=== PATIENT | male | born 1955 | race Caucasian/White ===

== ENCOUNTER 2016-12-25 23:20 | Emergency (ER) | payer MEDICAID ==
[2016-12-26 00:12] LABS: BASOPHILS 0.3 % (0-2); HEMATOCRIT 49.7 % (42.0-54.0); HEMOGLOBIN 17.2 g/dL (13.5-17.5); IMMATURE GRANULOCYTES 0.6 % (0-5); LYMPHOCYTES 21.4 % (15-50); MCHC 34.6 g/dL (31.0-37.0); MCV 92.4 fL (80.0-100.0); MEAN PLATELET VOLUME 10.3 fL (7.4-10.4); MONOCYTES 8.7 % (2-11); PLATELET COUNT 188 10x3/uL (130-400); RBC 5.38 10x6/uL (4.20-6.10); RDW 13.2 % (11.5-14.5); WBC 8.9 10x3/uL (4.8-10.8)
[2016-12-26 00:27] LABS: ALBUMIN 3.6 g/dL (3.4-5.0); ALKALINE PHOSPHATASE 96 U/L (46-116); ALT (SGPT) 57 U/L (10-68); BILIRUBIN - TOTAL 0.24 mg/dL (0.2-1.3); CALC OSMOLALITY 281 mosm/kg (275-300); CALCIUM 9.6 mg/dL (8.5-10.1); CARBON DIOXIDE 29.8 mmol/L (21.0-32.0); CHLORIDE - SERUM 103 mmol/L (98-107); CREATININE - SERUM 1.2 mg/dL (0.6-1.3); GLUCOSE 115 mg/dL (74-106); POTASSIUM - SERUM 3.7 mmol/L (3.5-5.1); PROTEIN - SERUM 7.4 g/dL (6.4-8.2); SODIUM 140 mmol/L (136-145); UREA NITROGEN 17 mg/dL (7-18); eGFR NON AFRICAN AMERICAN 66 mL/min (90-120)
[2016-12-26 00:36] LABS: CKMB 2.3 U/L (0.0-3.6); CREATINE KINASE 204 UL (21-232); TROPONIN-I 0.059 ng/mL (0.000-0.060)
== END 2016-12-26 01:06 | disposition home or self-care (01) ==
LOC: D.ER 23:20
PROVIDERS: Family Medicine
DX: J20.9 Acute bronchitis, unspecified (principal); I10 Essential (primary) hypertension; I44.60 Unspecified fascicular block

== ENCOUNTER 2017-04-14 18:43 | Emergency (ER) | payer MEDICAID ==
[2017-04-14 19:32] LABS: BASOPHILS 0.2 % (0-2); HEMATOCRIT 49.8 % (42.0-54.0); HEMOGLOBIN 17.6 g/dL (13.5-17.5); IMMATURE GRANULOCYTES 0.4 % (0-5); LYMPHOCYTES 23.5 % (15-50); MCH 32.1 pg (26.0-34.0); MCHC 35.3 g/dL (31.0-37.0); MCV 90.7 fL (80.0-100.0); MEAN PLATELET VOLUME 10.4 fL (7.4-10.4); NEUTROPHILS 65.9 % (40-80); PLATELET COUNT 191 10x3/uL (130-400); RBC 5.49 10x6/uL (4.20-6.10); RDW 13.1 % (11.5-14.5)
[2017-04-14 19:50] LABS: ANION GAP 9.5 mmol/L (8-16); BILIRUBIN - TOTAL 0.31 mg/dL (0.2-1.3); CALCIUM 9.7 mg/dL (8.5-10.1); CARBON DIOXIDE 31.2 mmol/L (21.0-32.0); CREATININE - SERUM 1.1 mg/dL (0.6-1.3); POTASSIUM - SERUM 3.7 mmol/L (3.5-5.1)
[2017-04-14 21:32] LABS: APPEARANCE CLEAR (CLEAR); BILIRUBIN NEGATIVE (NEGATIVE); COLOR YELLOW (YELLOW); GLUCOSE NEGATIVE (NEGATIVE); KETONE NEGATIVE (NEGATIVE); LEUKOCYTE ESTERASE NEGATIVE (NEGATIVE); NITRITE NEGATIVE (NEGATIVE); PROTEIN TRACE mg/dL (NEGATIVE); UROBILINOGEN NORMAL (NORMAL)
[2017-04-14 21:33] LABS: BACTERIA FEW /hpf (NONE SEEN); RED CELLS - URINE 0-5 /hpf (0-5); WHITE CELLS - URINE OCC /hpf (0-5)
== END 2017-04-14 22:01 | disposition home or self-care (01) ==
LOC: D.ER 18:43
PROVIDERS: Emergency Medicine
DX: R10.9 Unspecified abdominal pain (principal); I10 Essential (primary) hypertension; F17.200 Nicotine dependence, unspecified, uncomplicated

== ENCOUNTER → 2017-04-15 | Emergency (ER) | payer MEDICAID ==
[2017-04-15 10:57] LABS: BASOPHILS 0.1 % (0-2); EOSINOPHILS 1.3 % (0-7); HEMATOCRIT 48.7 % (42.0-54.0); IMMATURE GRANULOCYTES 0.5 % (0-5); LYMPHOCYTES 17.4 % (15-50); MCH 31.8 pg (26.0-34.0); MCHC 34.9 g/dL (31.0-37.0); MCV 91.2 fL (80.0-100.0); MEAN PLATELET VOLUME 10.2 fL (7.4-10.4); MONOCYTES 11.7 % (2-11); PLATELET COUNT 190 10x3/uL (130-400); RBC 5.34 10x6/uL (4.20-6.10); RDW 13.2 % (11.5-14.5); WBC 8.7 10x3/uL (4.8-10.8)
[2017-04-15 11:06] LABS: APTT 41.7 SECONDS (22.8-39.4); INR 0.94 (0.85-1.17); PROTIME 12.4 SECONDS (11.6-15.0)
[2017-04-15 11:09] LABS: ALBUMIN 3.6 g/dL (3.4-5.0); ALKALINE PHOSPHATASE 95 U/L (46-116); ALT (SGPT) 29 U/L (10-68); BILIRUBIN - TOTAL 0.33 mg/dL (0.2-1.3); CALC OSMOLALITY 274 mosm/kg (275-300); CALCIUM 9.4 mg/dL (8.5-10.1); CHLORIDE - SERUM 102 mmol/L (98-107); GLUCOSE 86 mg/dL (74-106); PROTEIN - SERUM 7.3 g/dL (6.4-8.2); SODIUM 136 mmol/L (136-145); eGFR NON AFRICAN AMERICAN 81 mL/min (90-120)
[2017-04-15 11:10] LABS: UREA NITROGEN 24 mg/dL (7-18)
== END | disposition home or self-care (01) ==
LOC: D.ER 10:29
PROVIDERS: Emergency Medicine
DX: K92.2 Gastrointestinal hemorrhage, unspecified (principal); K57.92 Diverticulitis of intestine, part unspecified, without perforation or abscess without bleeding; I10 Essential (primary) hypertension

== ENCOUNTER 2017-05-13 21:56 | Emergency (ER) | payer MEDICAID | END 2017-05-14 00:38 | disposition home or self-care (01) | LOC: D.ER 21:56 | DX: J02.9 Acute pharyngitis, unspecified (principal); I10 Essential (primary) hypertension; F17.200 Nicotine dependence, unspecified, uncomplicated ==

== ENCOUNTER 2017-05-17 05:57 | Emergency (ER) | payer MEDICAID ==
[2017-05-17 06:38] LABS: UDS - AMPHET NEGATIVE QUAL (NEGATIVE); UDS - BARB NEGATIVE QUAL (NEGATIVE); UDS - BENZO NEGATIVE QUAL (NEGATIVE); UDS - COCAINE NEGATIVE QUAL (NEGATIVE); UDS - OPIATE NEGATIVE QUAL (NEGATIVE); UDS - PCP NEGATIVE QUAL (NEGATIVE); UDS - THC NEGATIVE QUAL (NEGATIVE)
[2017-05-17 06:44] LABS: BASOPHILS 0.2 % (0-2); HEMATOCRIT 48.7 % (42.0-54.0); HEMOGLOBIN 16.7 g/dL (13.5-17.5); IMMATURE GRANULOCYTES 0.4 % (0-5); LYMPHOCYTES 18.1 % (15-50); MCH 31.5 pg (26.0-34.0); MCHC 34.3 g/dL (31.0-37.0); MCV 91.7 fL (80.0-100.0); MEAN PLATELET VOLUME 10.3 fL (7.4-10.4); MONOCYTES 9.4 % (2-11); NEUTROPHILS 70.9 % (40-80); PLATELET COUNT 192 10x3/uL (130-400); RBC 5.31 10x6/uL (4.20-6.10); RDW 13.4 % (11.5-14.5); WBC 10.2 10x3/uL (4.8-10.8)
[2017-05-17 06:57] LABS: APPEARANCE SLT CLOUDY (CLEAR); BACTERIA FEW /hpf (NONE SEEN); BILIRUBIN NEGATIVE (NEGATIVE); COLOR YELLOW (YELLOW); EPITHELIAL CELLS OCC /hpf (0-5); GLUCOSE NEGATIVE (NEGATIVE); KETONE NEGATIVE (NEGATIVE); MUCUS <1+ /lpf (NONE SEEN); NITRITE NEGATIVE (NEGATIVE); PROTEIN TRACE mg/dL (NEGATIVE); RED CELLS - URINE 0-5 /hpf (0-5); SPECIFIC GRAVITY 1.025 (1.005-1.020); UROBILINOGEN NORMAL (NORMAL); WHITE CELLS - URINE RARE /hpf (0-5)
[2017-05-17 07:05] LABS: ALBUMIN 3.5 g/dL (3.4-5.0); ALKALINE PHOSPHATASE 80 U/L (46-116); ALT (SGPT) 39 U/L (10-68); BILIRUBIN - TOTAL 0.42 mg/dL (0.2-1.3); CALC OSMOLALITY 276 mosm/kg (275-300); CALCIUM 9.4 mg/dL (8.5-10.1); CARBON DIOXIDE 24.2 mmol/L (21.0-32.0); CHLORIDE - SERUM 102 mmol/L (98-107); GLUCOSE 124 mg/dL (74-106); POTASSIUM - SERUM 3.7 mmol/L (3.5-5.1); PROTEIN - SERUM 7.2 g/dL (6.4-8.2); SODIUM 137 mmol/L (136-145); UREA NITROGEN 17 mg/dL (7-18); eGFR NON AFRICAN AMERICAN 81 mL/min (90-120)
[2017-05-17 07:15] LABS: TROPONIN-I 0.027 ng/mL (0.000-0.060)
== END 2017-05-17 10:58 | disposition home or self-care (01) ==
LOC: D.ER 05:57
PROVIDERS: Family Medicine
DX: F41.9 Anxiety disorder, unspecified (principal); I10 Essential (primary) hypertension; I44.4 Left anterior fascicular block

== ENCOUNTER 2018-02-05 06:12 | Emergency (ER) | payer MEDICAID ==
[~2018-02-05] VITALS: Ht 170.2 cm; Wt 95.3 kg
[2018-02-05 06:17] VITALS: Ht 170.2 cm; Wt 95.3 kg
[2018-02-05] MEDS ORDERED: ADVIL200 MG PO (06:18)
[2018-02-05] MEDS ORDERED: HYDROCHLOROTHIA25 MG PO (06:40)
[2018-02-05] MEDS ORDERED: NORCO 7.5/325 T1 TA1 PO (06:40)
[2018-02-05 08:01] VITALS: BP 136/89
== END 2018-02-05 07:31 | disposition home or self-care (01) ==
LOC: D.ER 06:12
DX: M54.6 Pain in thoracic spine (principal); M54.5 Low back pain; F17.200 Nicotine dependence, unspecified, uncomplicated

== ENCOUNTER 2018-02-16 23:09 | Emergency (ER) | payer MEDICAID ==
[~2018-02-16] VITALS: Ht 170.2 cm; Wt 95.5 kg
[~2018-02-16 23:09] MED LIST: ADVIL200 MG PO; HYDROCHLOROTHIA25 MG PO; NORCO 7.5/325 T1 TA1 PO
[2018-02-16 23:28] VITALS: Ht 170.2 cm; Wt 95.5 kg
[2018-02-16] MEDS ORDERED: [UNRECOGNIZED DRUG - REMARK] (23:31)
[2018-02-17] MEDS ORDERED: BYSTOLIC10 MG PO (00:46)
[2018-02-17] MEDS ORDERED: NEURONTIN 300300 MG PO (00:46)
[2018-02-17 01:13] VITALS: BP 145/87
== END 2018-02-17 01:14 | disposition home or self-care (01) ==
LOC: D.ER 23:09
DX: S39.012A Strain of muscle, fascia and tendon of lower back, initial encounter (principal); X58.XXXA Exposure to other specified factors, initial encounter; Y93.89 Activity, other specified; Y92.019 Unspecified place in single-family (private) house as the place of occurrence of the external cause; Z76.0 Encounter for issue of repeat prescription; I10 Essential (primary) hypertension; F17.200 Nicotine dependence, unspecified, uncomplicated

== ENCOUNTER 2018-05-18 12:59 | Emergency (ER) | payer MEDICAID ==
[~2018-05-18] VITALS: Ht 170.2 cm; Wt 90.9 kg
[~2018-05-18 12:59] MED LIST changes: +BYSTOLIC10 MG PO; +NEURONTIN 300300 MG PO; +[UNRECOGNIZED DRUG - REMARK]
[2018-05-18 13:13] VITALS: Ht 170.2 cm; Wt 90.9 kg
[2018-05-18] MEDS ORDERED: NORCO 7.5/325 T1 TA1 PO (17:47)
[2018-05-18 18:28] VITALS: BP 146/74
[2018-06-12 15:46] VITALS: Ht 170.2 cm; Wt 90.9 kg
== END 2018-05-18 18:29 | disposition home or self-care (01) ==
LOC: D.ER 12:59
DX: M54.6 Pain in thoracic spine (principal); I10 Essential (primary) hypertension

== ENCOUNTER → 2018-05-23 14:23 | Outpatient (CLI) | payer MEDICAID ==
[2018-05-18 13:13] VITALS: BMI 31.4
[~2018-05-23 14:23] MED LIST changes: +BAYER CHEWABLE81 MG PO; +COREG 3.1253.125 MG PO; +LEVAQUIN750 MG PO; +LIPITOR20 MG PO; +LISINOPRIL5 MG PO; +PLAVIX75 MG PO
[2018-06-12 15:46] VITALS: BMI 31.4
== END | disposition home or self-care (01) ==
LOC: D.MRI 14:23
DX: M47.27 Other spondylosis with radiculopathy, lumbosacral region (principal)

== ENCOUNTER 2018-06-06 20:43 | Inpatient (IN) | payer MEDICAID ==
[~2018-06-06] VITALS: Ht 170.2 cm; Wt 90.9 kg
[2018-06-06] VITALS: BP 106/75
--- NOTE | ~2018-06-06 | HEMODYNAMI ---
PATIENT:ADIEL SIEGEL MEDICAL RECORD: [id number] : 57 LOCATION:[facility] ADMISSION DATE: 06/06/18 Generatedon:06/06/201823:18 Patient name: ADIEL SIEGEL Patient #: [id number] SSN: : Date of study: 06/06/2018 Page: Of Hemodynamic Procedure Report Patient Data Patient Demographics Procedure consent was obtained First Name: ADIEL Gender: Male Last Name: ROBBIN : 1955 [facility] Initial: A Age: 63 year(s) Patient #: [id number] Race: Unknown Additional ID: [id number] Contact details Address: [address] [place] [address] State: [place] City: [place] Zip code: [address] Past Medical History Allergies: No known allergies Admission Admission Data Admission Date: 06/06/2018 Admission Time: 20:43 Admit Source: Emergency department Lab Results Lab Result Date: 06/06/2018 Lab Result Time: 20:50 Biochemistry Name Units Result Min Max BUN mg/dl 14 --(--*-)-- 7 18 Creatinine mg/dl 1.2 --(---*)-- 0.6 1.3 CBC Name Units Result Min Max Hematocrit % 48.2 --(--*-)-- 42 54 Hemoglobin g/dl 16.8 --(---*)-- 13.5 17.5 Procedure Procedure Types Cath Procedure Diagnostic Procedure LHC LH w/Coronaries Sedation Charges Moderate Sedation up to 15 minutes PCI Procedure AMI/SVG/ASSEMBLER MOTOR VEHICLE PTCA or Stent AMI-BMS/ALANA Initial Procedure Description Procedure Date Procedure Date: 06/06/2018 Procedure Start Time: 22:51 Procedure End Time: 23:17 Procedure Staff Name Function Arron Jett MD Performing Physician Phil Marti RT Monitor Mirtha Amin RT Scrub Gustavo Lopez RN Nurse Procedure Data Cath Procedure Fluoroscopy Diagnostic fluoroscopy Total fluoroscopy Time: 4.7 time: 4.7 min min Diagnostic fluoroscopy Total fluoroscopy dose: 970 dose: 970 mGy mGy Contrast Material Contrast Material Type Amount (ml) Isovue 300 97 Entry Location Entry Primary Successful Side Size Upsize Upsize Entry Closure Succes sful Closure Location (Fr) 1 (Fr) 2 (Fr) Remarks Device Remarks Femoral Right 6 Fr Exoseal artery Short Estimated blood loss: 10 ml Diagnostic catheters Device Type Used For End Catheter Placement Medtronic Dexterity 5Fr Procedure JL 4.0 catheter (NO COST SUPPLY) Medtronic Dexterity 5Fr Procedure 3DRC catheter (NO COST SUPPLY) Medtronic Dexterity 5Fr Procedure Pigtail catheter(NO COST SUPPLY) Procedure Complications No complications Procedure Medications Medication Administration Route Dosage Oxygen etCO2 Nasal cannula 2 l/min Heparin Flush Bag added to field 2 bags (1000units/500ml NS) 0.9% NaCl I.V. 100 ml/hr Zofran I.V. 4 mg Fentanyl I.V. 50 mcg Versed I.V. 1 mg Fentanyl I.V. 50 mcg Versed I.V. 1 mg Heparin Bolus I.V. 4000 units Integrilin (Bolus I.V. 8.5 ml 2mg/ml) Integrilin (Bolus wasted 1.5 ml 2mg/ml) Hemodynamics Rest HGB: 16.8 (g/dl) Heart Rate: 58 (bpm) Pressure Samples Time Site Value (mmHg) Purpose Heart Use Rate(bpm) 23:08 LV 113/19,26 Snapshot 78 23:09 AO 122/74(94) Pullback 70 23:09 LV 100/24,20 Pullback 70 Gradients Valve Time Site 1 Site 2 Mean SEP/DFP Peak To Heart Use (mmHg) (sec/min) Peak Rate (mmHg) (bpm) Aortic 23:09 LV AO 0 70 100/24,20 122/74(94) Calculations Valve P-P Mean Valve Index Valve Source Name Gradient Area Flow (cm2) Aortic 0 0 Snapshots Pre Cath Intra NCS Post Cath Vital Signs Time Heart Resp SPO2 etCO2 NIBP (mmHg) Rhythm Pain Sedation Rate (ipm) (%) (mmHg) Status Level (bpm) 22:44:35 59 16 95 18.8 153/98(130) NSR 0 (11) 10(A) , No pain 22:49:38 66 15 97 20.3 138/99(109) NSR 0 (11) 10(A) , No pain 22:53:52 53 16 96 0 146/96(121) NSR 0 (11) 9(A) , No pain 22:58:06 62 15 97 31.6 145/97(120) NSR 0 (11) 9(A) , No pain 23:02:14 58 16 98 35.3 132/94(110) NSR 0 (11) 9(A) , No pain 23:06:30 76 16 98 33.1 130/78(104) NSR 0 (11) 9(A) , No pain 23:10:40 70 17 97 33.1 133/87(118) NSR 0 (11) 9(A) , No pain 23:14:51 66 17 96 18.8 134/91(107) NSR 0 (11) 9(A) , No pain Medications Time Medication Route Dose Verified Delivered Reason Notes Effectiveness by by 22:43:26 Oxygen etCO2 2 Arron Chen Per physician Nasal l/min St Adiel Lopez RN cannula 22:43:35 Heparin Flush added 2 Arron Chen used for Bag to bags St Adiel Lopez RN procedure (1000units/500ml field WOMACK NS) 22:43:42 0.9% NaCl I.V. 100 Arron Chen Per physician ml/hr St Adiel Lopez RN, MD 22:43:55 Zofran I.V. 4 mg Arron Chen for nausea St Adiel Lopez RN, MD 22:51:04 Fentanyl I.V. 50 Arron Chen for sedation [facility] RN, MD 22:51:10 Versed I.V. 1 mg Arron Chen for sedation St Adiel Lopez RN, MD 22:57:31 Fentanyl I.V. 50 Arron Chen for sedation [facility] Ad[facility] RN, MD 22:57:35 Versed I.V. 1 mg Arron Chen for sedation St Adiel Lopez RN, MD 22:57:44 Heparin Bolus I.V. 4000 Arron Chen for units St Adiel Lopez RN anticoagulation 22:58:00 Integrilin I.V. 8.5 Arron Chen for (Bolus 2mg/ml) ml St Adiel Lopez RN antiplatelet therapy 22:58:05 Integrilin wasted 1.5 Arron Chen for (Bolus 2mg/ml) ml Maliha Lopez RN antiplatelet MD therapy Procedure Log Time Note 22:27:55 Informed consent obtained and on chart 22:27:58 Admit Source: Emergency department 22:28:12 Diagnostic Cath status Emergency 22:28:14 Gustavo Lopez RN sent for patient. Start room use. 22:28:16 Time tracking: Call back (After hours or weekends) 22:28:19 Plan of Care:Hemodynamics will remain stable., Cardiac rhythm will remain stable., Comfort level will be maintained., Respiratory function will remain adequate., Patient/ family verbilizes understanding of procedure., Procedure tolerated without complication., Recovers from procedure without complications.. 22:28:47 H&P Date Dictated: 06/06/2018 Within 30 days and on chart., ER History on chart.. ::31 Lab Result : BUN 14 mg/dl ::31 Lab Result : Hemoglobin 16.8 g/dl ::31 Lab Result : Creatinine 1.2 mg/dl ::31 Lab Result : Hematocrit 48.2 % 22:29:34 Lab results completed and on chart. 22:37:50 Patient received from ED to CCL 1 Alert and oriented. Tansferred to table in Supine position. 22:37:51 Warm blankets applied, and orlin hugger turned on for patient comfort. 22:37:51 Correct patient and procedure confirmed by team. 22:37:53 ECG and BP/O2 sat monitors applied to patient. 22:37:54 Pre-procedure instructions explained to patient. 22:37:54 Pre-op teaching completed and patient verbalized understanding. 22:43:26 Oxygen 2 l/min etCO2 Nasal cannula was administered by Gustavo Lopez RN; Per physician; 22:43:29 Vital chart was started 22:43:35 Heparin Flush Bag (1000units/500ml NS) 2 bags added to field was administered by Gustavo Lopez RN; used for procedure; 22:43:42 0.9% NaCl 100 ml/hr I.V. was administered by Gustavo Lopez RN; Per physician; 22:43:55 Zofran 4 mg I.V. was administered by Gustavo Lopez RN; for nausea; 22:47:52 Baseline sample Acquired. 22:47:58 Rhythm: sinus rhythm , w/ ST elevation 22:47:59 Full Disclosure recording started 22:48:02 Family in waiting room. 22:48:04 Patient NPO since Dinner. 22:48:08 Patient allergic to No known allergies 22:48:10 Is the patient allergic to Iodine/contrast media? No. 22:48:10 Is patient on blood thinner?Yes 22:48:12 ACC The patient was administered the following blood thiners within the last 24 hours: ACCPlavix 22:48:14 Patient diabetic? No. 22:48:16 Previous problem with sedation/anesthesia? No ? 22:48:17 Snore? Yes 22:48:18 Sleep apnea? No 22:48:18 Deviated septum? No 22:48:19 Opens mouth fully? Yes 22:48:20 Sticks out tongue? Yes 22:48:34 Airway obstruction? Yes Possible Asthma and or COPD 22:48:37 Dentures? No ? 22:48:39 Pre procedure: right dorsailis pedis pulse 2+ Normal; easily identifiable; not easily obliterated 22:48:44 Patient pain scale 10/10 chest pain. 22:48:56 IV patent on arrival in right forearm with 0.9% NaCl at KVO. 22:49:00 IV patent on arrival in left forearm with 0.9% NaCl at KVO. 22:49:03 Right groin area was prepped with chlora-prep and draped in sterile fashion 22:49:04 Alarms reviewed by R. N. 22:49:04 Sharps counted by scrub and verified by R.N. 22:49:07 ACIST Syringe (23387) opened to sterile field. 22:49:07 Bag Decanter () opened to sterile field. 22:49:08 Medline Cath Pack ([id number]) opened to sterile field. 22:49:09 ACIST Hand Control (85852) opened to sterile field. 22:49:09 ACIST Manifold (94772) opened to sterile field. 22:49:10 Tegaderm 4 x 4 (1626W) opened to sterile field. 22:49:12 DIAGNOSTIC WIRE .035 260cm J wire (593364) opened to sterile field. 22:49:21 SHEATH Prelude 6Fr 0.035 (FZY-8O-34-035) opened to sterile field. 22:49:37 Physician arrived 22:49:37 --------ALL STOP TIME OUT------ 22:49:37 Final Timeout: patient, procedure, and site verified with staff and physician. All members of the team are in agreement. 22:49:39 Right groin site verified by team. 22:49:41 Physical assessment completed. ASA score P 3 - A patient with severe systemic disease as per Arron Jett MD. 22:49:45 Sedation plan: IV Moderate Sedation Medication:Versed, Fentanyl 22:51:04 Fentanyl 50 mcg I.V. was administered by Gustavo Lopez RN; for sedation; 22:51:10 Versed 1 mg I.V. was administered by Gustavo Lopez RN; for sedation; 22:51:30 Procedure started. 22:51:32 Local anesthetic to right femoral artery with Lidocaine 2% by Arron Jett MD.INITIAL ACCESS ONLY 22:51:58 A 6 Fr Short sheath was inserted into the Right Femoral artery 22:51:58 WHISPER 300cm guide wire ([id number]) opened to sterile field. 22:51:58 INFLATOR Merit BasixCompak (GA2784) opened to sterile field. 22:52:04 A Medtronic Dexterity 5Fr JL 4.0 catheter (NO COST SUPPLY) was advanced over the wire and used for Procedure. 22:52:07 Zero performed for pressure channel P1 22:53:11 LCA angiography performed. 22:53:59 Catheter exchanged over wire. 22:54:16 A Medtronic Dexterity 5Fr 3DRC catheter (NO COST SUPPLY) was advanced over the wire and used for Procedure. 22:54:57 RCA angiography performed. 22:55:32 GUIDE 6FR JL 4.0 catheter ([id number]) opened to sterile field. 22:55:47 6 Fr JL 4 guide catheter was inserted over the wire 22:57:31 Fentanyl 50 mcg I.V. was administered by Gustavo Lopez RN; for sedation; 22:57:35 Versed 1 mg I.V. was administered by Gustavo Lopez RN; for sedation; 22:57:44 Heparin Bolus 4000 units I.V. was administered by Gustavo Lopez RN; for anticoagulation; 22:58:00 Integrilin (Bolus 2mg/ml) 8.5 ml I.V. was administered by Gustavo Lopez RN; for antiplatelet therapy; 22:58:05 Integrilin (Bolus 2mg/ml) 1.5 ml wasted was administered by Gustavo Lpoez RN; for antiplatelet therapy; 22:58:33 WHISPER wire advanced. 22:58:35 Wire advanced across lesion. 22:59:54 Inflate balloon Inflation number: 1 A EMERGE OTW 2.5 x 12 balloon ([id number]) was prepped and advanced across the Prox LAD, then inflated to 12 ALY for 0:30 (min:sec). 23:01:02 Balloon removed over the wire. 23:03:16 Place stent Inflation Number: 2 A INTEGRITY OTW 3.0 X 26 stent ([id number]) was prepped and advanced across the Prox LAD. The stent was deployed at 14 ALY for 0:45 (min:sec). 23:04:08 Stent catheter was removed intact over wire. 23:06:22 Place stent Inflation Number: 3 A INTEGRITY OTW 3.0 X 12 stent ([id number]) was prepped and advanced across the Prox LAD. The stent was deployed at 14 ALY for 0:45 (min:sec). 23:06:46 Stent catheter was removed intact over wire. 23:06:49 Wire removed. 23:06:54 Guide catheter removed. 23:07:04 A Moment.Us Dexterity 5Fr Pigtail catheter(NO COST SUPPLY) was advanced over the wire and used for Procedure. 23:09:00 LV gram done using ADAMS 23:09:02 Injector settings: Ml/sec: 10, Volume: 20, 23:09:05 LV hemodynamics recorded. 23:09:09 EF : 30 % 23:09:18 Catheter removed. 23:09:34 EXOSEAL 6Fr (EX600) opened to sterile field. 23:10:45 Sheath removed intact; hemostasis achieved with Exoseal to the Right Femoral artery. 23:10:47 Procedure ended.(Physican Out) 23:13:39 Fluoroscopy time 04.70 minutes. 23:13:44 Fluoroscopy dose: 970 mGy 23:13:44 Flurop Dose total: 970 23:13:48 Contrast amount:Isovue 300 97ml. 23:13:50 Sharps counted by scrub and verified by R.N. 23:13:51 Insertion/operative site no bleeding no hematoma. 23:13:54 Post-op/insertion site Right Femoral artery dressed using a 4 x 4 and Tegaderm. 23:14:03 Post right femoral artery:stable, soft, clean and dry 23:14:05 Post Procedure Pulses reassessed and unchanged 23:14:09 Post-procedure physical assessment completed. ASA score P 3 - A patient with severe systemic disease as per Arron Jett MD. 23:14:48 Post procedure rhythm: unchanged. 23:14:53 Estimated blood loss: 10 ml 23:14:55 Post procedure instruction explained to patient.Patient verbalizes understanding. 23:14:55 Patient needs reinforcement of post procedure teaching. 23:15:45 Procedure type changed to Cath procedure, Diagnostic procedure, LHC, LHC w/Coronaries, Sedation Charges, Moderate Sedation up to 15 minutes, PCI procedure, AMI/SVG/ASSEMBLER MOTOR VEHICLE PTCA or Stent, AMI-BMS/ALANA Initial 23:16:58 Procedure and supply charges have been captured, reviewed, submitted and are correct. 23:17:00 Procedure Complication : No complications 23:17:05 Vital chart was stopped 23:17:05 See physician's report for complete and final results. 23:17:07 Report given to CVICU. 23:17:09 Patient transfered to CVICU with Stretcher. 23:17:11 Procedure ended. 23:17:11 Full Disclosure recording stopped 23:17:15 End room use (Document Last) Intervention Summary Intervention Notes Time ActionType Lesion and Equipment Action# Pressure Duration Attributes Used 22:59:54 Inflate Prox LAD EMERGE OTW 1 12 00:30 balloon 2.5 x 12 balloon ([id number]) 23:03:16 Place stent Prox LAD INTEGRITY 2 14 00:45 OTW 3.0 X 26 stent ([id number]) 23:06:22 Place stent Prox LAD INTEGRITY 3 14 00:45 OTW 3.0 X 12 stent ([id number]) Device Usage Item Name Manufacture Quantity Catalog Number Hospital Part Current Minimal Lot# / Charge Number Stock Stock Serial# Code ACIST Syringe Acist 1 62058 162669 074959 587496 20 (63984) Extended Stay [employer] Bag Decanter Microtek 1 229775 66622 419322 5 () Medical Inc. Medline Cath Medline 1 [id number] 256895 52111 869660 5 Pack ([id number]) ACIST Hand Acist 1 00401 740337 410828 509062 5 Control (57879) Medical Systems Inc ACIST Manifold Acist 1 78953 907457 956152 830606 5 (23312) Medical Systems Inc Tegaderm 4 x 4 3M 1 1626W 114490 759066 662519 5 (1626W) DIAGNOSTIC WIRE St Santosh 1 089648 377011 598596 520223 30 .035 260cm J wire (581585) SHEATH Prelude Merit 1 VMH-0R-[id number] 955376 9734600 064242 5 6Fr 0.035 Medical (VPE-6W-81-035) WHISPER 300cm Carney 1 [id number] 250202 841516 057970 5 guide wire Vascular ([id number]) INFLATOR Merit Merit 1 [id number] 406070 591296 719834 15 [facility] (QL7551) Medtronic Medtronic 1 [id number] 164325 019672 5 Dexterity 5Fr JL 4.0 catheter (NO COST SUPPLY) Medtronic Medtronic 1 [id number] 236114 810836 5 Dexterity 5Fr 3DRC catheter (NO COST SUPPLY) GUIDE 6FR JL Medtronic 1 [id number] 626520 02943 079703 1 4.0 catheter (DU3IT52) EMERGE OTW 2.5 Logan 1 [id number] 708008 286614 523608 5 [id number] x 12 balloon Scientific ([id number]) INTEGRITY OTW Medtronic 1 [id number] 674586 677311 9 [id number] 3.0 X 26 stent ([id number]) INTEGRITY OTW Medtronic 1 [id number] 518653 024971 7 [id number] 3.0 X 12 stent ([id number]) Medtronic Medtronic 1 [id number] 586670 129055 5 Dexterity 5Fr Pigtail catheter(NO COST SUPPLY) EXOSEAL 6Fr Cardinal 1 EX600 738334 467243 813589 10 (EX600) Health Signature Audit [place] Stage Time Signature Unsigned Intra-Procedure 06/06/2018 Phil Marti 11:18:34 PM RT(R) Signatures Monitor : Phil Marti RT Signature : Date : Time : [address] [place] [address]
--- NOTE | ~2018-06-06 | OP ---
PATIENT NAME: ADIEL SIEGEL MEDICAL RECORD: [id number] :57 LOCATION:[facility] ADMISSION DATE:06/06/18 SURGEON: CHERI SAMANO MD DATE OF OPERATION: 06/06/2018 PROCEDURES: Left heart catheterization, selective coronary angiography, right femoral artery approach. CATHETERS: A 5-Lao sheath, 5/4 left and right John, 5/4 pig. The procedure was well tolerated. We proceeded to emergent PTCA after the procedure is finished. FINDINGS: Left ventriculography in 30-degree ADAMS view shows mid anterior wall, anterior apical, true apical region hypokinesis. Overall, function reduced 30-35%. CORONARY ANATOMY: LEFT MAIN: Left main is free of disease. LAD: Has a diffuse stenosis up till the proximal third. This is totally occluded. Has a large ramus branch that is totally occluded, fills via left to left collaterals. CIRCUMFLEX: Circumflex has a long diffuse stenosis about 80% in its proximal portion. RIGHT CORONARY ARTERY: Large, dominant artery, free of disease. IMPRESSION: Obviously infarct related artery is left anterior descending. PLAN: Intervention momentarily. DESCRIPTION: A 5-Lao sheath was exchanged for a 6-Lao introducer sheath. A JL4 guiding catheter provided excellent guide catheter support followed by a 300 cm Whisper wire. Pre-deployment balloon used was a 2.5 12-mm Ceiba balloon up to 10 atmospheres. Next, stents were placed in the following fashion. A 3.0 26-mm Integrity okp-oito-hozwrgs stent was used to cover the distal portion of this vessel. Next, a second 3.0 12-mm Integrity zkz-rdgs-rqrszef stent up to 14 atmospheres more proximally. Final injection shows excellent resolution of 100% stenosis to no significant residual. PETRA flow improved from 0 to 3. Heparin and Integrilin were used during the case. Sheath was closed with ExoSeal device. Again, a beta-blockade, statin, MARCIA inhibitor if pressure tolerates. DISPOSITION: To the ICU in guarded but stable condition. TRANSINT:[id number] Voice Confirmation ID: [id number] DOCUMENT ID: [id number] OPERATIVE REPORT [id number] ADIEL SIEGEL CHERI SAMANO MD at 7748 CC: [id number] DICTATION DATE: 06/06/182319 SUPPLY TECH: 06/07/18 0121 DIS IN 06/08/18 [place] [id number] [place] [id number]
--- NOTE | ~2018-06-06 | HP ---
PATIENT: ADIEL SIEGEL MEDICAL RECORD: [id number] ACCOUNT: [id number] LOCATION:[facility]le[facility] : 57 ADMISSION DATE: 06/06/18 PCP: SMITH SHIPMAN MD HISTORY AND PHYSICAL EXAMINATION HISTORY: A 63-year-old gentleman with a known history of coronary artery disease, has a history of hypertension, and history of chronic back pain. Presented to the ER initially with chest pain and minimal ST-segment changes. Pain became acutely worse, had probable hyperacute T-wave changes anteriorly, has been brought to geophysical laboratory supervisor on an urgent basis. PAST MEDICAL HISTORY: 1. History of hypertension. 2. Chronic back pain. ALLERGIES: HYDROCODONE. MEDICATIONS: Typically include Bystolic 10 mg p.o. daily, Neurontin 300 mg p.o. b.i.d., [place] 7.5/325 one q. 6 hours p.r.n. SOCIAL HISTORY: Smokes about a pack a day. No illicit drug use. No set exercise program. REVIEW OF SYSTEMS: The patient reports easy bruising but reports no swollen glands. The patient reports no fever, no night sweats, no significant weight gain, no significant weight loss. No significant exercise tolerance. The patient reports no dry eyes, no irritation, no vision change. Patient reports no difficulty hearing and no ear pain. Patient reports no frequent nose bleeds or nose and sinus problems. Patient reports on arm pain on exertion. No shortness of breath while lying down. No history of heart murmur. Patient reports no cough, no wheezing or coughing up blood. Patient reports no abdominal pain, no vomiting. Normal appetite. No diarrhea and not vomiting blood. No nausea and no constipation. Patient reports no incontinence. No difficulty urinating. No hematuria. No increased frequency. Patient reports no muscle aches. No weakness, no arthralgias, no back pain. No swelling of the extremities. Patient reports no abnormal mole, no jaundice, no rashes. Reports no loss of consciousness. No weakness and no numbness. No seizures, dizziness, or headaches. The patient reports no depression, no sleep disturbance, feeling safe in a relationship and no alcohol abuse. Patient reports on fatigue. Reports no runny nose or sinus pressure. No itching, no hives, and no frequent sneezing. PHYSICAL EXAMINATION: GENERAL: A comfortable-appearing gentleman in no acute distress. VITAL SIGNS: 175/114, pulse 64 and regular. HEENT: Normocephalic and atraumatic. NECK: No bruits noted. HEART: Regular, S4 gallop is noted. LUNGS: Good air excursion. ABDOMEN: Soft and nontender. Pulses 2+. No edema. IMPRESSION: Acute myocardial infarction. PLAN: For angiography, intervention based on above. HISTORY AND PHYSICAL [id number] ADIEL SIEGEL TRANSINT:[id number] Voice Confirmation ID: [id number] DOCUMENT ID: [id number] CHERI SAMANO MD at 1418 CC: [id number] DICTATION DATE: 06/06/182222 ACCESSIBILITY LIFT TECHNICIAN: 06/06/182311 DIS IN 06/08/18 [place] [id number] [place] [address]
--- NOTE | ~2018-06-06 | DS ---
PATIENT:ADIEL SIEGEL :57 MEDICAL RECORD: [id number] DISCHARGE SUMMARY ADMISSION DATE: 06/06/18 DISCHARGE DATE: 06/08/18 DATE OF ADMISSION: 06/06/2018. DATE OF DISCHARGE: 06/08/2018. FINAL DIAGNOSES: 1. Acute anterior myocardial infarction. 2. Hypertension. 3. Ongoing tobacco use. BRIEF HISTORY AND HOSPITAL COURSE: Admitted with evolving infarct, found to have a totally occluded LAD, underwent stenting, did well postoperatively. Will need intervention of the circumflex at a later date. ACTIVITY: As tolerated. DIET: AHA diet, is counseled extensively on smoking cessation. TRANSINT:[id number] Voice Confirmation ID: [id number] DOCUMENT ID: [id number] CHERI SAMANO MD at 1418 CC: [id number] DICTATION DATE: 06/08/18 0832 ROCK STAR: 06/08/18 0838 DIS IN 06/08/18 [place] [id number] [place] [address]
[~2018-06-06 20:43] MED LIST changes: -BAYER CHEWABLE81 MG PO; -COREG 3.1253.125 MG PO; -LEVAQUIN750 MG PO; -LIPITOR20 MG PO; -LISINOPRIL5 MG PO; -PLAVIX75 MG PO
[2018-06-06 21:10] LABS: BASOPHILS 0.2 % (0-2); EOSINOPHILS 1.9 % (0-7); HEMATOCRIT 48.2 % (42.0-54.0); HEMOGLOBIN 16.8 g/dL (13.5-17.5); IMMATURE GRANULOCYTES 0.7 % (0-5); LYMPHOCYTES 27.4 % (15-50); MCH 31.8 pg (26.0-34.0); MCHC 34.9 g/dL (31.0-37.0); MCV 91.1 fL (80.0-100.0); MEAN PLATELET VOLUME 10.6 fL (7.4-10.4); NEUTROPHILS 61.8 % (40-80); PLATELET COUNT 214 10x3/uL (130-400); RBC 5.29 10x6/uL (4.20-6.10); RDW 13.1 % (11.5-14.5)
[2018-06-06 21:35] LABS: INR 0.87 (0.85-1.17); PROTIME 11.5 SECONDS (11.6-15.0)
[2018-06-06 21:36] LABS: APTT 33.2 SECONDS (22.8-39.4)
[2018-06-06 21:39] LABS: ALBUMIN 3.7 g/dL (3.4-5.0); ALKALINE PHOSPHATASE 103 U/L (46-116); ALT (SGPT) 40 U/L (10-68); BILIRUBIN - TOTAL 0.18 mg/dL (0.2-1.3); CALC OSMOLALITY 283 mosm/kg (275-300); CALCIUM 9.1 mg/dL (8.5-10.1); CARBON DIOXIDE 24.9 mmol/L (21.0-32.0); CHLORIDE - SERUM 104 mmol/L (98-107); CKMB 1.9 U/L (0.0-3.6); CREATINE KINASE 145 UL (21-232); CREATININE - SERUM 1.2 mg/dL (0.6-1.3); GLUCOSE 168 mg/dL (74-106); POTASSIUM - SERUM 3.8 mmol/L (3.5-5.1); PROTEIN - SERUM 7.6 g/dL (6.4-8.2); SODIUM 140 mmol/L (136-145); TROPONIN-I 0.031 ng/mL (0.000-0.060); UREA NITROGEN 14 mg/dL (7-18); eGFR NON AFRICAN AMERICAN 65 mL/min (90-120)
[2018-06-06 23:40] VITALS: BP 115/72; Ht 170.2 cm; Wt 90.9 kg
[2018-06-07] VITALS (23 sets, daily range): BP systolic 94–134; BP diastolic 44–86
[2018-06-07 04:46] LABS: BASOPHILS 0.1 % (0-2); EOSINOPHILS 0.1 % (0-7); HEMATOCRIT 46.1 % (42.0-54.0); HEMOGLOBIN 15.9 g/dL (13.5-17.5); IMMATURE GRANULOCYTES 0.3 % (0-5); LYMPHOCYTES 8.7 % (15-50); MCH 31.4 pg (26.0-34.0); MCHC 34.5 g/dL (31.0-37.0); MCV 90.9 fL (80.0-100.0); MEAN PLATELET VOLUME 10.8 fL (7.4-10.4); MONOCYTES 7.2 % (2-11); NEUTROPHILS 83.6 % (40-80); PLATELET COUNT 203 10x3/uL (130-400); RBC 5.07 10x6/uL (4.20-6.10); RDW 13.1 % (11.5-14.5)
[2018-06-07 04:54] LABS: WBC 14.8 10x3/uL (4.8-10.8)
[2018-06-07 05:00] LABS: ALBUMIN 3.2 g/dL (3.4-5.0); ALKALINE PHOSPHATASE 71 U/L (46-116); BILIRUBIN - TOTAL 0.31 mg/dL (0.2-1.3); CALC OSMOLALITY 280 mosm/kg (275-300); CALCIUM 8.5 mg/dL (8.5-10.1); CARBON DIOXIDE 25.7 mmol/L (21.0-32.0); CHLORIDE - SERUM 104 mmol/L (98-107); GLUCOSE 137 mg/dL (74-106); POTASSIUM - SERUM 4.3 mmol/L (3.5-5.1); PROTEIN - SERUM 6.9 g/dL (6.4-8.2); SODIUM 140 mmol/L (136-145); UREA NITROGEN 13 mg/dL (7-18); eGFR NON AFRICAN AMERICAN 80 mL/min (90-120)
[2018-06-07 05:02] LABS: ALT (SGPT) 76 U/L (10-68)
[2018-06-08] VITALS: BP 111/60
[2018-06-08 01:00] VITALS: BP 119/68
[2018-06-08 02:00] VITALS: BP 125/32
[2018-06-08 03:00] VITALS: BP 127/40
[2018-06-08 04:00] VITALS: BP 133/46
[2018-06-08 05:00] VITALS: BP 118/68
[2018-06-08] MEDS ORDERED: PLAVIX75 MG PO ×2 (07:45→08:10)
[2018-06-08] MEDS ORDERED: LIPITOR20 MG PO ×2 (07:46→07:47)
[2018-06-08] MEDS ORDERED: BAYER CHEWABLE81 MG PO (07:58)
== END 2018-06-08 08:30 | disposition home or self-care (01) | DRG 249 ==
LOC: D.ER 20:43 → D.CVICU 23:17
PROVIDERS: Family Medicine; Internal Medicine Interventional Cardiology
PROC: B2151ZZ Fluoroscopy of Left Heart using Low Osmolar Contrast (ICD-10-PCS; 2018-06-06)
PROC: 4A023N7 Measurement of Cardiac Sampling and Pressure, Left Heart, Percutaneous Approach (ICD-10-PCS; 2018-06-06)
PROC: 02703EZ Dilation of Coronary Artery, One Artery with Two Intraluminal Devices, Percutaneous Approach (ICD-10-PCS; principal; 2018-06-06 22:51)
PROC: B2111ZZ Fluoroscopy of Multiple Coronary Arteries using Low Osmolar Contrast (ICD-10-PCS; 2018-06-06 22:51)
DX: I21.09 ST elevation (STEMI) myocardial infarction involving other coronary artery of anterior wall (principal); I10 Essential (primary) hypertension; F17.200 Nicotine dependence, unspecified, uncomplicated; G89.29 Other chronic pain; M54.9 Dorsalgia, unspecified; I25.10 Atherosclerotic heart disease of native coronary artery without angina pectoris

== ENCOUNTER 2018-06-12 09:17 | Inpatient (IN) | payer MEDICAID ==
[~2018-06-12] VITALS: Ht 170.2 cm; Wt 95.3 kg
[2018-06-12] VITALS (17 sets, daily range): BP systolic 88–136; BP diastolic 53–96; Ht 170.2 cm; Wt 95.3 kg
--- NOTE | ~2018-06-12 | MORECARE ---
CASE MANAGEMENT DISCHARGE SUMMARY PATIENT: ADIEL SIEGEL UNIT: [id number] ADM DATE: 06/12/18 AGE: 63 : 57 SEX: M ROOM/BED: D.2146 AUTHOR: TOM,DOC PHYSICIAN: REFERRING PHYSICIAN: KATIE SIDDIQUI MD DATE OF SERVICE: 06/14/18 Discharge Plan Patient Name: ADIEL SIEGEL Facility: [facility]:[place] : 1955 Planned Disposition: Home Anticipated Discharge Date: 06/14/18 Discharge Date: Expected LOS: 2 Initial Reviewer: [email or web address] Initial Review Date: 06/14/2018 Generated: 06/14/18 6:39 pm Comments DCP- Discharge Planning Updated by [email or web address]: Teo Murray on 06/14/18 4:[address] Patient Name: ADIEL SIEGEL Admission Status: ER Accout number: [id number] Admission Date: 06-12-2018 : 1955 Admission Diagnosis:PNEUMONIA, UNSPECIFIED ORGANISM Attending: KATIE SIDDIQUI Current LOS: 2 Anticipated DC Date: 06-14-2018 Planned Disposition: Home Primary Insurance: [employer] [employer] RUTH ANN Discharge Planning Comments: CM MET WITH PT IN ROOM TO DISCUSS DISCHARGE PLANNING AND NEEDS. PT REPORTS LIVING AT HOME INDEPENDENTLY AND ALONE. PT HAS NO MEDICAL EQUIPMENT AND NO OUTSIDE SERVICES ASSISTING IN THE HOME. CM DISCUSSED AVAILABILITY OF HOME HEALTH, REHAB SERVICES AND MEDICAL EQUIPMENT. PT DENIES DISCHARGE NEEDS, REPORTS HE IS DRIVING SELF HOME FOR DISCHARGE HOME TODAY. PROCESS SAFETY ENGINEERING TECHNOLOGIST NURSE NOTIFIED. PT REPORTED NOT HAVING PRIMARY DOCTOR, CM EDUCATED PT ON HOW TO CONTACT HIS INSURANCE COMPANY FOR LIST OF IN NETWORK PROVIDERS TO CONTACT FOR POSSIBLE PRIMARY CARE AND PROVIDED HEALTHY CONNECTIONS CLINIC INFORMATION. Credit Risk Officer: Teo Murray DCPIA - Discharge Planning Initial Assessment Updated by [email or web address]: Teo Murray on 06/14/18 5:36 pm * Is the patient Alert and Oriented? Yes * How many steps to enter\exit or inside your home? * PCP NONE * [facility] * Preadmission Environment Home Alone * ADLs Independent * Equipment None * Other Equipment NO MEDICAL EQUIPMENT PROVIDER * List name and contact numbers for known caregivers / representatives who currently or will assist patient after discharge: NOVEMBER ROBBIN, * Verbal permission to speak to the caregivers and representatives has been obtained from the patient. N/A * Community resources currently utilized None * Please name any agencies selected above. NONE * Additional services required to return to the preadmission environment? No * Can the patient safely return to the preadmission environment? Yes * Has this patient been hospitalized within the prior 30 days at any hospital? Yes Last DP export: 06/14/18 4:33 p Patient Name: ADIEL SIEGEL Page [id number] at 1739 All edits/amendments must be made on the electronic document DICTATION DATE: 06/14/181738 TORTS LAW PROFESSOR: EDDIE 06/14/181738 RPT#: [id number] DC DATE: STATUS: ADM IN [facility] [address] [place] [address] END OF REPORT
--- NOTE | ~2018-06-12 | MORECARE ---
CASE MANAGEMENT DISCHARGE SUMMARY PATIENT: ADIEL SIEGEL UNIT: [id number] ADM DATE: 06/12/18 AGE: 63 : 57 SEX: M ROOM/BED: D.2118 AUTHOR: TONIO SANTOS PHYSICIAN: REFERRING PHYSICIAN: KATIE SIDDIQUI MD DATE OF SERVICE: 06/14/18 Discharge Plan Patient Name: ADIEL SIEGEL [facility] : 1955 Planned Disposition: Home Anticipated Discharge Date: 06/14/18 Discharge Date: Expected LOS: 2 Initial Reviewer: [email or web address] Initial Review Date: 06/14/2018 Generated: 06/14/18 6:33 pm Patient Name: ADIEL SIEGEL Page 36543 at 1733 All edits/amendments must be made on the electronic document DICTATION DATE: 06/14/181731 ELECTRIC DEICER ASSEMBLER: EDDIE 06/14/181731 RPT#: [id number] DC DATE: STATUS: ADM IN [facility] [address] [place] [address] END OF REPORT
--- NOTE | ~2018-06-12 | HEMODYNAMI ---
PATIENT:ADIEL SIEGEL MEDICAL RECORD: [id number] : 57 LOCATION[facility] [facility] [id number] ADMISSION DATE: 06/12/18 Generatedon:06/13/201813:12 Patient name: ADIEL SIEGEL Patient #: [id number] SSN: : Date of study: 06/13/2018 Page: Of Hemodynamic Procedure Report Patient Data Patient Demographics Procedure consent was obtained First Name: ADIEL Gender: Male Last Name: ROBBIN : 1955 [facility] Initial: A Age: 63 year(s) Patient #: [id number] Race: Additional ID: [id number] Contact details [address]: [address] [place] [address] State: [place] City: [place] Zip code: [address] Past Medical History Allergies: No known allergies Admission Admission Data Admission Date: 06/12/2018 Admission Time: 12:01 Room #: D2118 Lab Results Lab Result Date: 06/06/2018 Lab Result Time: 20:50 Biochemistry Name Units Result Min Max BUN mg/dl 14 --(--*-)-- 7 18 Creatinine mg/dl 1.2 --(---*)-- 0.6 1.3 CBC Name Units Result Min Max Hematocrit % 48.2 --(--*-)-- 42 54 Hemoglobin g/dl 16.8 --(---*)-- 13.5 17.5 Procedure Procedure Types Cath Procedure Diagnostic Procedure LHC LHC w/Coronaries Sedation Charges Moderate Sedation up to 15 minutes PCI Procedure Coronary Stent Coronary Stent Initial x2 Procedure Description Procedure Date Procedure Date: 06/13/2018 Procedure Start Time: 12:48 Procedure End Time: 13:11 Procedure Staff Name Function Jose Juan Werner MD Performing Physician Natalie Belle RT Monitor Indy Berrios RT Scrub Mikayla Khanna RN Nurse Procedure Data Cath Procedure Fluoroscopy Diagnostic fluoroscopy Total fluoroscopy Time: 8 time: 8 min min Diagnostic fluoroscopy Total fluoroscopy dose: dose: 1955 mGy 1957 mGy Contrast Material Contrast Material Type Amount (ml) Isovue 300 173 Entry Location Entry Primary Successful Side Size Upsize Upsize Entry Closure Succes sful Closure Location (Fr) 1 (Fr) 2 (Fr) Remarks Device Remarks Femoral Right 6 Fr Exoseal artery Short Estimated blood loss: 5 ml Diagnostic catheters Device Type Used For End Catheter Placement MULTIPACK Pigtail 5 Fr LV Angiography catheter MULTIPACK JL 4.0 5Fr Left Coronary catheter Angiography MULTIPACK 3DRC 5Fr Right Coronary catheter Angiography Procedure Complications No complications Procedure Medications Medication Administration Route Dosage Oxygen etCO2 Nasal cannula 2 l/min Lidocaine 2% added to field 20 Heparin Flush Bag added to field 2 bags (1000units/500ml NS) 0.9% NaCl I.V. 100 ml/hr Versed I.V. 2 mg Fentanyl I.V. 100 mcg Versed I.V. 1 mg Fentanyl I.V. 50 mcg Versed I.V. 1 mg Fentanyl I.V. 50 mcg Heparin Bolus I.V. 4000 units Versed I.V. 1 mg Fentanyl I.V. 50 mcg Hemodynamics Rest HGB: 16.8 (g/dl) Heart Rate: 61 (bpm) Pressure Samples Time Site Value (mmHg) Purpose Heart Use Rate(bpm) 12:49 LV 96/74,63 Snapshot 88 Snapshots Pre Cath Intra NCS Post Cath Vital Signs Time Heart Resp SPO2 etCO2 NIBP (mmHg) Rhythm Pain Sedation Rate (ipm) (%) (mmHg) Status Level (bpm) 12:32:45 64 14 97 0 122/93(102) NSR 0 (11) 10(A) , No pain 12:36:46 60 22 96 0 129/90(106) NSR 0 (11) 10(A) , No pain 12:40:48 59 20 96 0 115/94(102) NSR 0 (11) 10(A) , No pain 12:45:43 33 16 95 0 138/87(121) NSR 0 (11) 9(A) , No pain 12:49:49 53 16 95 0 135/91(117) NSR 0 (11) 9(A) , No pain 12:53:52 48 15 95 0 145/96(129) NSR 0 (11) 9(A) , No pain 12:58:05 69 12 95 0 133/87(100) NSR 0 (11) 9(A) , No pain 13:02:10 71 12 96 0.7 127/88(115) NSR 0 (11) 9(A) , No pain 13:06:14 62 14 95 0 138/87(122) NSR 0 (11) 9(A) , No pain 13:10:59 67 15 96 0 146/96(115) NSR 0 (11) 10(A) , No pain Medications Time Medication Route Dose Verified Delivered Reason Notes Effectiveness by by 12:36:26 Oxygen etCO2 2 Jose Juan Buffie used for Nasal l/min Debbi Khanna RN procedure cannula 12:36:35 Lidocaine 2% added 20ml Jose Juan Buffie used for to vial Debbi Khanna RN procedure field 12:36:41 Heparin Flush added 2 Jose Juan Buffie used for Bag to bags Debbi Khanna RN procedure (1000units/500ml field NS) 12:36:50 0.9% NaCl I.V. 100 Jose Juan Buffie Per physician ml/hr Debbi Khanna RN 12:38:38 Versed I.V. 2 mg Jose Juan Buffie for sedation Debbi Khanna RN 12:38:44 Fentanyl I.V. 100 Jose Juan Buffie for sedation mcg Debbi Khanna RN 12:42:35 Versed I.V. 1 mg Jose Juan Buffie for sedation Debbi Khanna RN 12:42:40 Fentanyl I.V. 50 Jose Juan Buffie for sedation mcg Debbi Khanna RN 12:48:13 Versed I.V. 1 mg Jose Juan Buffie for sedation Debbi Khanna RN 12:48:17 Fentanyl I.V. 50 Jose Juan Buffie for sedation mcg Debbi Khanna RN 12:52:22 Heparin Bolus I.V. 4000 Jose Juan Buffie for verif ied units Debbi Khanna RN anticoagulation with dr werner 12:54:40 Versed I.V. 1 mg Jose Juan Buffie for sedation Debbi Khanna RN 12:54:44 Fentanyl I.V. 50 Jose Juan Buffie for sedation mcg Debbi Khanna RN Procedure Log Time Note 12:15:42 Informed consent obtained and on chart 12:16:20 Natalie PETERS(R) sent for patient. Start room use. 12:16:20 Time tracking: Regular hours (M-F 7:00 - 5:00) 12:16:25 Plan of Care:Hemodynamics will remain stable., Cardiac rhythm will remain stable., Comfort level will be maintained., Respiratory function will remain adequate., Patient/ family verbilizes understanding of procedure., Procedure tolerated without complication., Recovers from procedure without complications.. 12:31:41 Patient received from PCU to CCL 2 Alert and oriented. Tansferred to table in Supine position. 12:31:42 Warm blankets applied, and orlin hugger turned on for patient comfort. 12:31:42 Correct patient and procedure confirmed by team. 12:31:43 ECG and BP/O2 sat monitors applied to patient. 12:31:44 Full Disclosure recording started 12:31:45 Vital chart was started 12:32:01 Rhythm: sinus rhythm 12:32:20 H&P Date Dictated: 06/12/2018 Within 30 days and on chart.. 12:32:21 Pre-procedure instructions explained to patient. 12:32:21 Pre-op teaching completed and patient verbalized understanding. 12:32:23 Family in patients room. 12:32:24 Patient NPO since Midnight. 12:32:30 Patient allergic to No known allergies 12:32:34 Is the patient allergic to Iodine/contrast media? No. 12:32:35 Is patient on blood thinner?Yes 12:32:37 ACC The patient was administered the following blood thiners within the last 24 hours: ACCPlavix 12:32:50 Patient diabetic? No. 12:32:53 Previous problem with sedation/anesthesia? No ? 12:32:54 Snore? Yes 12:32:55 Sleep apnea? No 12:32:56 Deviated septum? No 12:32:57 Opens mouth fully? Yes 12:32:57 Sticks out tongue? Yes 12:32:59 Airway obstruction? No ? 12:33:01 Dentures? No ? 12:33:05 Pre procedure: right dorsailis pedis pulse 2+ Normal; easily identifiable; not easily obliterated 12:33:09 Patient pain scale 0/10 ?. 12:33:23 IV patent on arrival in right hand with 0.9% NaCl at O. 12:33:25 Lab results completed and on chart. 12:33:29 Right groin area was prepped with chlora-prep and draped in sterile fashion 12:33:30 Alarms reviewed by R. N. 12:33:30 Sharps counted by scrub and verified by R.N. 12:33:33 Use device set Femoral Dx 12:33:34 ACIST Syringe (61751) opened to sterile field. 12:33:34 Bag Decanter (2002S) opened to sterile field. 12:33:35 Medline Cath Pack ([id number]) opened to sterile field. 12:33:35 DIAGNOSTIC WIRE .035 260cm J wire (495693) opened to sterile field. 12:33:38 ACIST Hand Control (00973) opened to sterile field. 12:35:22 ACIST Manifold (02346) opened to sterile field. 12:35:23 DIAGNOSTIC Multipack 5Fr catheter set (UP9939) opened to sterile field. 12:35:23 Tegaderm 4 x 4 (1626W) opened to sterile field. 12:35:32 Physician arrived 12::33 --------ALL STOP TIME OUT------ 12:35:33 Final Timeout: patient, procedure, and site verified with staff and physician. All members of the team are in agreement. 12:35:35 Right groin site verified by team. 12:35:39 Physical assessment completed. ASA score P 2 - A patient with mild systemic disease as per Jose Juan Werner MD. 12:35:42 Sedation plan: IV Moderate Sedation Medication:Versed, Fentanyl 12:36:26 Oxygen 2 l/min etCO2 Nasal cannula was administered by Mikayla Khanna RN; used for procedure; 12:36:35 Lidocaine 2% 20ml vial added to field was administered by Mikayla Khanna RN; used for procedure; 12:36:41 Heparin Flush Bag (1000units/500ml NS) 2 bags added to field was administered by Mikayla Khanna RN; used for procedure; 12:36:50 0.9% NaCl 100 ml/hr I.V. was administered by Mikayla Khanna RN; Per physician; 12:38:38 Versed 2 mg I.V. was administered by Mikayla Khanna RN; for sedation; 12:38:44 Fentanyl 100 mcg I.V. was administered by Mikayla Khanna RN; for sedation; 12:41:34 Zero performed for pressure channel P1 12:42:17 Baseline sample Acquired. 12:42:35 Versed 1 mg I.V. was administered by Mikayla Khanna RN; for sedation; 12:42:40 Fentanyl 50 mcg I.V. was administered by Mikayla Khanna RN; for sedation; 12:48:09 Procedure started. 12:48:13 Versed 1 mg I.V. was administered by Mikayla Khanna RN; for sedation; 12:48:15 Local anesthetic to right femoral artery with Lidocaine 2% by Jose Juan Werner MD.INITIAL ACCESS ONLY 12:48:17 Fentanyl 50 mcg I.V. was administered by Mikayla Khanna RN; for sedation; 12:48:31 SHEATH 6FR Enterprise (MKX154) opened to sterile field. 12:48:49 A 6 Fr Short sheath was inserted into the Right Femoral artery 12:49:34 A MULTIPACK Pigtail 5 Fr catheter was advanced over the wire and used for LV Angiography. 12:49:43 LV hemodynamics recorded. 12:49:44 LV gram done using ADAMS 12:49:46 Injector settings: Ml/sec: 5, Volume: 15, 12:49:58 EF : 30 % 12:50:09 Catheter removed. 12:50:27 A MULTIPACK JL 4.0 5Fr catheter was advanced over the wire and used for Left Coronary Angiography. 12:50:57 LCA angiography performed. 12:51:00 Injector settings: Ml/sec: 3, Volume: 6, 12:51:44 Catheter removed. 12:52:19 INFLATOR Merit BasixCompak (DV4273) opened to sterile field. 12:52:20 CHOICE Floppy Straight 300cm guide wire ([id number]) opened to sterile field. 12:52:21 CHOICE PT Extra Support 182cm wire ([id number]) opened to sterile field. 12:52:22 Heparin Bolus 4000 units I.V. was administered by Mikayla Khanna RN; for anticoagulation; verified with dr werner 12:53:06 A MULTIPACK 3DRC 5Fr catheter was advanced over the wire and used for Right Coronary Angiography. 12:53:09 RCA angiography performed. 12:53:12 Injector settings: Ml/sec: 3, Volume: 6, 12:53:14 Catheter removed. 12:53:16 Proceeding to intervention. 12:54:40 Versed 1 mg I.V. was administered by Mikayla Khanna RN; for sedation; 12:54:44 Fentanyl 50 mcg I.V. was administered by Mikayla Khanna RN; for sedation; 12:55:00 GUIDE 6FR XBLAD 3.5 catheter ([id number]) opened to sterile field. 12:55:15 6 Fr xblad 3.5 guide catheter was inserted over the wire 12:55:26 182 choice pt wire advanced. 12:57:34 300choice pt wire advanced. 13:00:20 The EMERGE OTW 1.5 x 15 balloon ([id number]) was advanced and then removed because of failure to cross lesion 13:01:32 Inflate balloon Inflation number: 1 A EUPHORA 2.0 x 20 Balloon ([id number]) was prepped and advanced across the Ramus, then inflated to 15 ALY for 0:10 (min:sec). 13:01:43 Inflation number: 2 The EUPHORA 2.0 x 20 Balloon ([id number]) was reinflated across the Ramus, to 17 ALY for 0:10 (min:sec). 13:02:15 Balloon removed over the wire. 13:03:35 Place stent Inflation Number: 3 A RENE RX 2.25 x 26 stent ([id number]) was prepped and advanced across the Ramus. The stent was deployed at 15 ALY for 0:10 (min:sec). 13:04:41 Stent catheter was removed intact over wire. 13:04:53 Wire redirected to lcx. 13:05:19 Inflation number: 1 The stent balloon was then re-inflated across the Prox CX to 17 ALY for 0:10 (min:sec). 13:05:46 Stent catheter was removed intact over wire. 13:06:18 Place stent Inflation Number: 2 A RENE RX 2.5 x 26 stent ([id number]) was prepped and advanced across the Prox CX. The stent was deployed at 21 ALY for 0:10 (min:sec). 13:08:38 Stent catheter was removed intact over wire. 13:08:39 Wire removed. 13:08:39 Guide catheter removed. 13:08:49 EXOSEAL 6Fr (EX600) opened to sterile field. 13:09:00 Sheath removed intact; hemostasis achieved with Exoseal to the Right Femoral artery. 13:09:02 Procedure ended.(Physican Out) 13:09:22 Fluoroscopy time 08.00 minutes. 13:09:30 Fluoroscopy dose: 1955 mGy 13:09:30 Flurop Dose total: 1955 13:09:55 Contrast amount:Isovue 300 173ml. 13:09:56 Sharps counted by scrub and verified by R.N. 13:09:58 Insertion/operative site no bleeding no hematoma. 13:10:00 Post-op/insertion site Right Femoral artery dressed using a 4 x 4 and Tegaderm. 13:10:03 Post right femoral artery:stable 13:10:05 Post Procedure Pulses reassessed and unchanged 13:10:07 Post procedure rhythm: unchanged. 13:10:09 Estimated blood loss: 5 ml 13:10:11 Post procedure instruction explained to patient.Patient verbalizes understanding. 13:10:11 Patient needs reinforcement of post procedure teaching. 13:10:34 Procedure type changed to Cath procedure, Diagnostic procedure, LHC, LHC w/Coronaries, Sedation Charges, Moderate Sedation up to 15 minutes, PCI procedure, Coronary Stent, Coronary Stent Initial x2 13:10:35 Procedure and supply charges have been captured, reviewed, submitted and are correct. 13:10:39 Procedure Complication : No complications 13:10:41 Vital chart was stopped 13:10:41 See physician's report for complete and final results. 13:11:14 Report given to [facility]. 13:11:16 Patient transfered to [facility] with Stretcher. 13:11:18 Procedure ended. 13:11:18 Full Disclosure recording stopped 13:11:34 ACC-PCI Only Patient was given prescriptions, or instructed by Jose Juan Werner MD to start/continue the following medications upon discharge: Plavix 13:11:36 End room use (Document Last) Intervention Summary Intervention Notes Time ActionType Lesion and Equipment Used Action# Pressure Duration Attributes 13:00:20 Discard EMERGE OTW 1.5 Balloon x 15 balloon ([id number]) 13:01:32 Inflate Ramus EUPHORA 2.0 x 1 15 00:10 balloon 20 Balloon ([id number]) 13:01:43 Reinflate Ramus EUPHORA 2.0 x 2 17 00:10 balloon 20 Balloon ([id number]) 13:03:35 Place stent Ramus RENE RX 2.25 x 3 15 00:10 26 stent ([id number]) 13:05:19 Reinflate Prox CX RENE RX 2.25 x 1 17 00:10 stent 26 stent balloon ([id number]) 13:06:18 Place stent Prox CX RENE RX 2.5 x 2 21 00:10 26 stent ([id number]) Device Usage Item Name Manufacture Quantity Catalog Number Hospital Part Current Minimal Lot# / Charge Number Stock Stock Serial# Code ACIST Syringe Acist 1 70048 087036 612989 487942 20 (73028) Medical Systems Inc Bag Decanter Microtek 1 2001S 947940 06175 963325 5 () Medical Inc. Medline Cath Medline 1 [id number] 469756 98912 448286 5 Pack ([id number]) DIAGNOSTIC St Santosh 1 979832 527767 326965 267799 30 WIRE .035 260cm J wire (312604) ACIST Hand Acist 1 19749 385470 112455 673887 5 Control Medical (43190) Systems Inc ACIST Manifold Acist 1 14810 568581 249879 967731 5 (31439) Medical Systems Inc DIAGNOSTIC Cardinal 1 XS0151 652076 29872 403086 30 Multipack 5Fr Health catheter set (SZ5026) Tegaderm 4 x 4 3M 1 1626W 813271 974901 014920 5 (1626W) SHEATH 6FR Terumo 1 QZD905 410348 813303 161421 40 Enterprise (OVM481) MULTIPACK Cardinal 1 555025 5 Pigtail 5 Fr Health catheter MULTIPACK JL Cardinal 1 090695 5 4.0 5Fr Health catheter INFLATOR Merit Merit 1 XF1464 482841 007419 660954 15 Canal do CreditomnPanorama9 (EL9729) CHOICE Floppy [place] 1 [id number] 038176 099273 198154 5 Straight 300cm Scientific guide wire (27395297) CHOICE PT [place] 1 [id number] 451500 277362 579156 5 Extra Support Scientific 182cm wire ([id number]) MULTIPACK 3DRC Cardinal 1 307403 5 5Fr catheter Health GUIDE 6FR Cardinal 1 16407269 652003 211694 268342 10 XBLAD 3.5 Health catheter (83668315) EMERGE OTW 1.5 [place] 1 [id number] 867335 327420 054248 5 [id number] x 15 balloon Scientific ([id number]) EUPHORA 2.0 x Medtronic 1 [id number] 282113 935431 767885 5 [id number] 20 Balloon ([id number]) RENE RX 2.25 x Medtronic 1 [id number] 309772 5540196 094597 5 [id number] 26 stent ([id number]) RENE RX 2.5 x Medtronic 1 [id number] 222883 0357517 445463 5 [id number] 26 stent ([id number]) EXOSEAL 6Fr Cardinal 1 EX600 087886 979432 494203 10 (EX600) Health Signature Audit [place] Stage Time Signature Unsigned Intra-Procedure 06/13/2018 Natalie Belle 1:12:52 PM RT(R) Signatures Monitor : Natalie Belle RT Signature : Date : Time : [place] [id number] [place] [address]
--- NOTE | ~2018-06-12 | CN ---
PATIENT NAME:ADIEL CARVAJAL MEDICAL RECORD: [id number] : 57 LOCATION:D. D.2118 ADMIT DATE: 06/12/18 ACCOUNT: [id number] CONSULTING PHYSICIAN: OLESYA REAL MD REFERRING PHYSICIAN: KATIE SIDDIQUI MD DATE OF CONSULTATION: 06/12/2018 CONSULT REQUESTING PHYSICIAN: Jose Juan Werner MD REASON FOR CONSULTATION: Questionable pneumonia. HISTORY OF PRESENT ILLNESS: Mr. Carvajal is a 63-year-old gentleman who had cardiac catheterization on Monday and discharged home on Monday. Since then, he has worsening shortness of breath. He was feeling feverish. He also has worsening shortness of breath. Today, he has chest pain. He came into the ER and found out he has a non-STEMI with troponin above 7. Also, the chest radiograph shows possible pulmonary edema with elevated proBNP. REVIEW OF SYSTEMS: Mainly in the history of present illness. PAST MEDICAL HISTORY: Coronary artery disease, status post stent placement. PAST SURGICAL HISTORY: 1. He had back surgery. 2. He had cardiac catheterization and stent placement on Monday. ALLERGIES: HE IS ALLERGIC TO HMG-CoA REDUCTASE INHIBITOR WITH MYALGIA. MEDICATIONS: He is on Bystolic, Neurontin, and hydrocodone. PERSONAL AND SOCIAL HISTORY: The patient is a smoker off and on, now the patient says he has quit smoking. He is nondrinker. FAMILY HISTORY: Significant for hypertension. PHYSICAL EXAMINATION: GENERAL: Now, the patient is lying comfortably in bed. He is not in acute distress. VITAL SIGNS: Blood pressure 128/84, pulse is 63, respiration is 18, temperature is 98.8, and SpO2 is 96%. HEENT: Conjunctivae are pink. Sclerae are not icteric. NECK: Neck is supple. No JVD. CHEST: The chest excursion is minimal on both sides. There is no wheezing and no crackle. HEART: Rhythm regular. Normal sound. No murmur. ABDOMEN: Abdomen is soft. Bowel sounds present. No hepatosplenomegaly. RECTAL: Deferred. EXTREMITIES: No cyanosis. No clubbing. There is no pedal edema. SKIN: The skin is warm. Normal turgor. CENTRAL NERVOUS SYSTEM: The patient is awake and alert. There is no obvious cranial nerve abnormality. The gait was not tested. DIAGNOSTIC DATA: Chest radiograph; there are increased interstitial markings. OTHER LABORATORY DATA: CBC; WBC is 12.3, hemoglobin 14.1, and hematocrit is CONSULT REPORT [id number] ADIEL CARVAJAL 40.4. Chemistry; sodium 140, potassium 3.6, BUN is 14, and creatinine 0.9. Troponin is 7.24. ProBNP is 6203. IMPRESSION: 1. Pulmonary edema. 2. Acute [place]. 3. Doubt pneumonia. 4. Leukocytosis. 5. Ex-smoker, suspect COPD. RECOMMENDATION: 1. Continue empiric antibiotics, Zithromax and ceftriaxone IV. 2. Start him on Brovana and budesonide nebulizer. 3. Albuterol nebulizer p.r.n. 4. Cardiac cath in the morning. Followup labs and chest radiograph. Thank you for involving me in the care of Mr. Carvajal. TRANSINT:[id number] Voice Confirmation ID: [id number] DOCUMENT ID: [id number] OLESYA REAL MD at 1234 CC: [id number] DICTATION DATE: 06/12/18 170 VENETIAN BLIND WORKER: 06/12/18 1834 DIS IN 06/14/18 [facility] [address] [place] [address]
--- NOTE | ~2018-06-12 | OP ---
PATIENT NAME: ADIEL SIEGEL MEDICAL RECORD: [id number] :57 LOCATION:D.M2 D.2118 ADMISSION DATE:06/12/18 SURGEON: CARLOS FRIAS MD DATE OF OPERATION: 06/13/2018 PROCEDURES: 1. PTCA and stent of left circumflex. 2. PTCA and stent of ramus intermedius. 3. Left heart catheterization. 4. Selective coronary angiography. 5. Left ventriculogram. INDICATION: Angina and coronary artery disease. PROCEDURE IN DETAIL: After informed consent was obtained and after a detailed explanation of the risks, benefits as well as alternative therapies, the patient elected to proceed with angiogram and angioplasty. The right femoral area was prepped and draped in normal sterile fashion. Right femoral artery was cannulated via modified Seldinger technique with placement of 6-Spanish sheath. All catheters exchanged through this sheath. FINDINGS: The left ventriculogram was performed in standard 30-degree ADAMS view, reveals global hypokinesis throughout all segments. Overall ejection fraction is 30%. SELECTIVE CORONARY ANGIOGRAPHY: 1. Left main is with no significant angiographic disease. 2. Left anterior descending has previously placed stents. These are widely patent with no significant restenosis. No disease elsewise at the LAD or its branches. 3. The left circumflex has a ramus intermedius that has 95% stenosis, circumflex itself has 95% stenosis. 4. Right coronary has mild irregularities, but no flow-limiting stenosis. PTCA AND STENT OF THE RAMUS INTERMEDIUS: The stent used was a 2.25 x 26-mm Cosme. PTCA AND STENT OF THE LEFT CIRCUMFLEX: The stent used was a 2.5 x 26-mm Eastsound. The result with 0% residual stenosis. OVERALL IMPRESSION: Successful PTCA and stent of the ramus intermedius and left circumflex, both going from 95% initial stenosis to 0% residual. TRANSINT:[id number] Voice Confirmation ID: [id number] DOCUMENT ID: [id number] CARLOS FRIAS MD at 1816 CC: [id number] DICTATION DATE: 06/13/18 1314 BAR MACHINE OPERATOR PRODUCTION: 06/13/18 1323 [place] [address]
[~2018-06-12 09:17] MED LIST changes: +BAYER CHEWABLE81 MG PO; +LIPITOR20 MG PO; +PLAVIX75 MG PO
[2018-06-12 09:37] LABS: BASOPHILS 0.2 % (0-2); EOSINOPHILS 3.2 % (0-7); HEMATOCRIT 40.4 % (42.0-54.0); HEMOGLOBIN 14.1 g/dL (13.5-17.5); IMMATURE GRANULOCYTES 0.6 % (0-5); LYMPHOCYTES 13.1 % (15-50); MCH 31.2 pg (26.0-34.0); MCHC 34.9 g/dL (31.0-37.0); MCV 89.4 fL (80.0-100.0); MEAN PLATELET VOLUME 11.3 fL (7.4-10.4); MONOCYTES 12.5 % (2-11); NEUTROPHILS 70.4 % (40-80); PLATELET COUNT 240 10x3/uL (130-400); RBC 4.52 10x6/uL (4.20-6.10); WBC 12.3 10x3/uL (4.8-10.8)
[2018-06-12 10:29] LABS: APTT 32.9 SECONDS (22.8-39.4); INR 1.02 (0.85-1.17)
[2018-06-12 10:59] LABS: ALKALINE PHOSPHATASE 73 U/L (46-116); ALT (SGPT) 40 U/L (10-68); BILIRUBIN - TOTAL 0.66 mg/dL (0.2-1.3); CALC OSMOLALITY 279 mosm/kg (275-300); CALCIUM 8.6 mg/dL (8.5-10.1); CARBON DIOXIDE 24.8 mmol/L (21.0-32.0); CHLORIDE - SERUM 104 mmol/L (98-107); CREATININE - SERUM 0.9 mg/dL (0.6-1.3); GLUCOSE 96 mg/dL (74-106); POTASSIUM - SERUM 3.6 mmol/L (3.5-5.1); PROTEIN - SERUM 6.3 g/dL (6.4-8.2); SODIUM 140 mmol/L (136-145); UREA NITROGEN 14 mg/dL (7-18); eGFR NON AFRICAN AMERICAN > 90 mL/min (90-120)
[2018-06-12 11:15] LABS: CKMB 1.7 U/L (0.0-3.6); CREATINE KINASE 126 UL (21-232); PRO BNP 6203 pg/mL (0-125)
[2018-06-12 11:21] LABS: TROPONIN-I 7.249 ng/mL (0.000-0.060)
[2018-06-12 15:40] LABS: BASOPHILS 0.2 % (0-2); EOSINOPHILS 3.3 % (0-7); HEMATOCRIT 43.1 % (42.0-54.0); HEMOGLOBIN 14.7 g/dL (13.5-17.5); IMMATURE GRANULOCYTES 0.5 % (0-5); LYMPHOCYTES 14.6 % (15-50); MCH 30.6 pg (26.0-34.0); MCHC 34.1 g/dL (31.0-37.0); MCV 89.8 fL (80.0-100.0); MONOCYTES 10.2 % (2-11); NEUTROPHILS 71.2 % (40-80); PLATELET COUNT 204 10x3/uL (130-400)
[2018-06-12 16:10] LABS: CALC OSMOLALITY 282 mosm/kg (275-300); CARBON DIOXIDE 29.2 mmol/L (21.0-32.0); CHLORIDE - SERUM 103 mmol/L (98-107); GLUCOSE 105 mg/dL (74-106); POTASSIUM - SERUM 3.1 mmol/L (3.5-5.1); SODIUM 142 mmol/L (136-145); UREA NITROGEN 12 mg/dL (7-18); eGFR NON AFRICAN AMERICAN 80 mL/min (90-120)
[2018-06-13 00:49] VITALS: BP 116/70
[2018-06-13 05:46] LABS: BASOPHILS 0.1 % (0-2); EOSINOPHILS 3.6 % (0-7); HEMATOCRIT 41.3 % (42.0-54.0); HEMOGLOBIN 14.2 g/dL (13.5-17.5); IMMATURE GRANULOCYTES 0.6 % (0-5); LYMPHOCYTES 14.9 % (15-50); MCHC 34.4 g/dL (31.0-37.0); MCV 90.2 fL (80.0-100.0); MEAN PLATELET VOLUME 10.8 fL (7.4-10.4); NEUTROPHILS 68.8 % (40-80); PLATELET COUNT 200 10x3/uL (130-400); RBC 4.58 10x6/uL (4.20-6.10); WBC 11.2 10x3/uL (4.8-10.8)
[2018-06-13 06:02] LABS: ALBUMIN 2.8 g/dL (3.4-5.0); ALKALINE PHOSPHATASE 70 U/L (46-116); ALT (SGPT) 36 U/L (10-68); BILIRUBIN - TOTAL 0.75 mg/dL (0.2-1.3); CALC OSMOLALITY 284 mosm/kg (275-300); CALCIUM 8.9 mg/dL (8.5-10.1); CARBON DIOXIDE 27.8 mmol/L (21.0-32.0); CHLORIDE - SERUM 106 mmol/L (98-107); GLUCOSE 118 mg/dL (74-106); PROTEIN - SERUM 6.8 g/dL (6.4-8.2); SODIUM 142 mmol/L (136-145); UREA NITROGEN 14 mg/dL (7-18); eGFR NON AFRICAN AMERICAN 80 mL/min (90-120)
[2018-06-13 06:09] LABS: POTASSIUM - SERUM 3.6 mmol/L (3.5-5.1)
[2018-06-13 06:23] VITALS: BP 114/76
[2018-06-13 08:45] VITALS: BP 92/71
[2018-06-13 13:19] VITALS: BP 112/82
[2018-06-13 16:36] VITALS: BP 95/66
[2018-06-13 20:00] VITALS: BP 92/55
[2018-06-14 04:00] VITALS: BP 108/72
[2018-06-14 05:52] LABS: BASOPHILS 0.3 % (0-2); EOSINOPHILS 3.5 % (0-7); HEMATOCRIT 42.9 % (42.0-54.0); HEMOGLOBIN 14.6 g/dL (13.5-17.5); IMMATURE GRANULOCYTES 0.6 % (0-5); LYMPHOCYTES 14.8 % (15-50); MCV 91.1 fL (80.0-100.0); MEAN PLATELET VOLUME 10.7 fL (7.4-10.4); MONOCYTES 9.5 % (2-11); NEUTROPHILS 71.3 % (40-80); PLATELET COUNT 219 10x3/uL (130-400); RBC 4.71 10x6/uL (4.20-6.10); RDW 12.9 % (11.5-14.5); WBC 11.6 10x3/uL (4.8-10.8)
[2018-06-14 06:06] LABS: ALBUMIN 2.8 g/dL (3.4-5.0); ANION GAP 13.2 mmol/L (8-16); BILIRUBIN - TOTAL 0.53 mg/dL (0.2-1.3); CALCIUM 9.1 mg/dL (8.5-10.1); CARBON DIOXIDE 26.8 mmol/L (21.0-32.0); CREATININE - SERUM 1.1 mg/dL (0.6-1.3); PROTEIN - SERUM 6.9 g/dL (6.4-8.2)
[2018-06-14] MEDS ORDERED: COREG 3.1253.125 MG PO (15:49)
[2018-06-14] MEDS ORDERED: LISINOPRIL5 MG PO (15:49)
[2018-06-14] MEDS ORDERED: LEVAQUIN750 MG PO (15:50)
[2018-06-14 16:56] VITALS: BP 94/62
== END 2018-06-14 17:42 | disposition home or self-care (01) | DRG 247 ==
LOC: D.ER 09:17 → D.EDHOLD 12:01 → D.M2 12:01
PROVIDERS: Family Medicine; Internal Medicine Interventional Cardiology
PROC: B2111ZZ Fluoroscopy of Multiple Coronary Arteries using Low Osmolar Contrast (ICD-10-PCS; 2018-06-13)
PROC: B2151ZZ Fluoroscopy of Left Heart using Low Osmolar Contrast (ICD-10-PCS; 2018-06-13)
PROC: 027135Z Dilation of Coronary Artery, Two Arteries with Two Drug-eluting Intraluminal Devices, Percutaneous Approach (ICD-10-PCS; principal; 2018-06-13 12:16)
PROC: 4A023N7 Measurement of Cardiac Sampling and Pressure, Left Heart, Percutaneous Approach (ICD-10-PCS; 2018-06-13 12:16)
DX: I22.2 Subsequent non-ST elevation (NSTEMI) myocardial infarction (principal); I50.22 Chronic systolic (congestive) heart failure; I21.09 ST elevation (STEMI) myocardial infarction involving other coronary artery of anterior wall; I25.119 Atherosclerotic heart disease of native coronary artery with unspecified angina pectoris; J44.9 Chronic obstructive pulmonary disease, unspecified; I11.0 Hypertensive heart disease with heart failure; E78.5 Hyperlipidemia, unspecified; Z95.5 Presence of coronary angioplasty implant and graft; Z87.891 Personal history of nicotine dependence

== ENCOUNTER 2018-07-30 16:48 | Inpatient (IN) | payer MEDICAID ==
[~2018-07-30] VITALS: Ht 170.2 cm; Wt 95.5 kg
[~2018-07-30 16:48] MED LIST changes: +COREG 3.1253.125 MG PO; +LEVAQUIN750 MG PO; +LISINOPRIL5 MG PO
[2018-07-30 17:39] LABS: BASOPHILS 0.4 % (0-2); HEMATOCRIT 46.1 % (42.0-54.0); HEMOGLOBIN 15.8 g/dL (13.5-17.5); IMMATURE GRANULOCYTES 0.3 % (0-5); LYMPHOCYTES 19.9 % (15-50); MCH 30.9 pg (26.0-34.0); MCHC 34.3 g/dL (31.0-37.0); MCV 90.2 fL (80.0-100.0); MEAN PLATELET VOLUME 10.7 fL (7.4-10.4); MONOCYTES 11.1 % (2-11); NEUTROPHILS 65.3 % (40-80); PLATELET COUNT 225 10x3/uL (130-400); RBC 5.11 10x6/uL (4.20-6.10); RDW 12.9 % (11.5-14.5); WBC 7.4 10x3/uL (4.8-10.8)
[2018-07-30 17:53] LABS: ALBUMIN 3.7 g/dL (3.4-5.0); ALKALINE PHOSPHATASE 87 U/L (46-116); ALT (SGPT) 37 U/L (10-68); BILIRUBIN - TOTAL 0.31 mg/dL (0.2-1.3); CALC OSMOLALITY 279 mosm/kg (275-300); CALCIUM 9.3 mg/dL (8.5-10.1); CHLORIDE - SERUM 101 mmol/L (98-107); CREATININE - SERUM 0.9 mg/dL (0.6-1.3); GLUCOSE 111 mg/dL (74-106); POTASSIUM - SERUM 3.9 mmol/L (3.5-5.1); PROTEIN - SERUM 7.8 g/dL (6.4-8.2); SODIUM 139 mmol/L (136-145); UREA NITROGEN 16 mg/dL (7-18); eGFR NON AFRICAN AMERICAN > 90 mL/min (90-120)
[2018-07-30 18:09] LABS: CKMB 1.5 U/L (0.0-3.6); CREATINE KINASE 88 UL (21-232)
[2018-07-30 18:12] LABS: TROPONIN-I 0.429 ng/mL (0.000-0.060)
[2018-07-30 19:32] VITALS: BP 117/78
[2018-07-30 20:01] VITALS: BP 122/73
[2018-07-30 21:00] VITALS: BP 136/92
[2018-07-30 21:59] LABS: CKMB 1.5 U/L (0.0-3.6); CREATINE KINASE 72 UL (21-232)
[2018-07-30 22:00] VITALS: BP 120/87
[2018-07-31] VITALS (10 sets, daily range): BP systolic 107–144; BP diastolic 72–92; Ht 170.2 cm; Wt 95.5 kg
[2018-07-31 03:42] LABS: CKMB 1.3 U/L (0.0-3.6); CREATINE KINASE 61 UL (21-232)
[2018-07-31 03:49] LABS: TROPONIN-I 0.413 ng/mL (0.000-0.060)
[2018-07-31 09:04] LABS: BASOPHILS 0.6 % (0-2); EOSINOPHILS 3.7 % (0-7); HEMATOCRIT 44.3 % (42.0-54.0); HEMOGLOBIN 15.2 g/dL (13.5-17.5); IMMATURE GRANULOCYTES 0.4 % (0-5); LYMPHOCYTES 21.6 % (15-50); MCH 30.8 pg (26.0-34.0); MCHC 34.3 g/dL (31.0-37.0); MCV 89.9 fL (80.0-100.0); MEAN PLATELET VOLUME 10.7 fL (7.4-10.4); MONOCYTES 8.6 % (2-11); NEUTROPHILS 65.1 % (40-80); PLATELET COUNT 191 10x3/uL (130-400); RBC 4.93 10x6/uL (4.20-6.10); WBC 7.2 10x3/uL (4.8-10.8)
[2018-07-31 09:23] LABS: CALC OSMOLALITY 280 mosm/kg (275-300); CHLORIDE - SERUM 102 mmol/L (98-107); CKMB 1.3 U/L (0.0-3.6); CREATINE KINASE 58 UL (21-232); GLUCOSE 145 mg/dL (74-106); POTASSIUM - SERUM 3.8 mmol/L (3.5-5.1); SODIUM 138 mmol/L (136-145); UREA NITROGEN 17 mg/dL (7-18)
[2018-07-31 09:24] LABS: CREATININE - SERUM 1.2 mg/dL (0.6-1.3); TROPONIN-I 0.443 ng/mL (0.000-0.060); eGFR NON AFRICAN AMERICAN 65 mL/min (90-120)
[2018-07-31 16:00] LABS: T4 THYROXIN - FREE 0.97 ng/dL (0.76-1.46); THYROID STIMULATING HORMONE 1.4 uIU/mL (0.36-3.74)
[2018-08-01] VITALS: BP 107/65
[2018-08-01 04:00] VITALS: BP 108/72
[2018-08-01 05:29] LABS: BASOPHILS 0.4 % (0-2); EOSINOPHILS 4.4 % (0-7); HEMATOCRIT 46.2 % (42.0-54.0); HEMOGLOBIN 15.6 g/dL (13.5-17.5); IMMATURE GRANULOCYTES 0.3 % (0-5); MCH 30.5 pg (26.0-34.0); MCHC 33.8 g/dL (31.0-37.0); MCV 90.2 fL (80.0-100.0); MONOCYTES 12.6 % (2-11); NEUTROPHILS 58.3 % (40-80); PLATELET COUNT 195 10x3/uL (130-400); RBC 5.12 10x6/uL (4.20-6.10); RDW 12.6 % (11.5-14.5); WBC 7.1 10x3/uL (4.8-10.8)
[2018-08-01 05:43] LABS: ANION GAP 14.6 mmol/L (8-16); CALCIUM 9.1 mg/dL (8.5-10.1); CARBON DIOXIDE 26.5 mmol/L (21.0-32.0); CREATININE - SERUM 1.1 mg/dL (0.6-1.3); POTASSIUM - SERUM 4.1 mmol/L (3.5-5.1)
[2018-08-01 08:13] VITALS: BP 108/68
[2018-08-01] MEDS ORDERED: KLOR-CON 88 MEQ PO (12:53)
[2018-08-01] MEDS ORDERED: COREG6.25 MG PO (12:53)
[2018-08-01] MEDS ORDERED: FUROSEMIDE20 MG PO (12:53)
--- NOTE | 2018-08-09 14:56 | OP ---
PATIENT NAME: ADIEL SIEGEL MEDICAL RECORD: [id number] :57 LOCATION:[facility]- ADMISSION DATE:07/31/18 SURGEON: CARLOS FRIAS MD DATE OF OPERATION: 08/01/2018 PROCEDURES: 1. Left heart catheterization. 2. Selective coronary angiography. 3. Left ventriculogram. INDICATION: Chest pain compatible with angina, cardiomyopathy, coronary artery disease, shortness of breath, heart failure. PROCEDURE IN DETAIL: After informed consent was obtained and after a detailed description of the risks, benefits as well as alternative therapies, the patient elected to proceed with angiogram and heart catheterization. The right radial area was prepped and draped in normal sterile fashion. Right radial artery was cannulated via modified Seldinger technique with placement of 5-Sammarinese sheath. All catheters exchanged through this sheath. FINDINGS: The left ventriculogram was performed in standard 30-degree ADAMS view, reveals global hypokinesis throughout all segments. Overall ejection fraction estimated 20%. SELECTIVE CORONARY ANGIOGRAPHY: 1. Left main is with no significant angiographic disease. 2. Left anterior descending has previously placed stents, these are widely patent with no significant restenosis. No disease elsewise throughout the LAD or its branches. 3. Left circumflex has patency of the previously placed stents in the ramus intermedius. There is a long area of the left circumflex that is then chronically totally occluded. We tried to traverse this area. Last intervention it could not. This fills via left to left collaterals distally. 4. Right coronary artery has [id number] irregularities, but no flow-limiting stenosis. OVERALL IMPRESSION: Wide patency of the previously placed stents. Total occlusion of the left circumflex is not amenable to transcatheter revascularization. Center medical management on treatment of the cardiomyopathy and coronary artery disease. TRANSINT:[id number] Voice Confirmation ID: [id number] DOCUMENT ID: [id number] CARLOS FRIAS MD at 1456 CC: [id number] DICTATION DATE: 08/01/18 1112 DISPATCH MACHINE RUNNER: 08/01/18 1200 DIS IN 08/01/18 [id number] [place] [address]
--- NOTE | 2018-08-09 14:56 | CN ---
PATIENT NAME:ADIEL SIEGEL MEDICAL RECORD: [id number] : 57 LOCATION:[facility]- ADMIT DATE: 07/31/18 ACCOUNT: [id number] CONSULTING PHYSICIAN: CARLOS FRIAS MD REFERRING PHYSICIAN: YANIRA MINAYA MD DATE OF CONSULTATION: 07/31/2018 CARDIOLOGY CONSULTATION DIAGNOSES: 1. Non-Q-wave myocardial infarction. 2. Coronary artery disease. 3. Previous PTCA and stent. 4. Shortness of breath, dyspnea on exertion. 5. Hypertension. 6. Hyperlipidemia. HISTORY OF PRESENT ILLNESS: Mr. Siegel presents with anginal symptomatology, found to have mildly elevated troponin. He has been having chest pain and chest discomfort as well as shortness of breath. His last cardiac stent was in May. His EKG shows T-wave inversions anterolaterally. PHYSICAL EXAMINATION: GENERAL APPEARANCE: Well-nourished, well-developed, appears stated age. Level of distress, comfortable. PSYCHIATRIC: Mental status, alert, normal affect. Orientation, oriented to time, place and person. EYES: Lids and conjunctiva, noninjected. No discharge, no pallor. ENT: Lips, teeth, gums, normal dentition. Oropharynx, no cyanosis, no pallor. NECK: Carotid arteries, bilateral normal upstroke, no bruits, no thrills. JUGULAR VEINS: No jugular venous pressure or distention. CERVICAL LYMPH NODES: Nontender, nonenlarged. THYROID: Not enlarged. Nontender. No nodules. LUNGS: Respiratory effort, unlabored. CHEST: Normal curvature. No thoracic deformity. No chest wall tenderness. Percussion, resonant. Auscultation, clear. No wheezes, no rales, no rhonchi. CARDIOVASCULAR: Precordial exam, nondisplaced. No heaves or pericardial thrills. Rate and rhythm, regular. Heart sounds, normal S1, normal S2. No S3, no gallop, no rub. Systolic murmur, not heard. Diastolic murmur, not heard. EXTREMITIES: No cyanosis, no edema. Peripheral pulses, full and equal in all extremities, except as noted. No bruits appreciated. ABDOMEN: Soft, nondistended. Normal aorta. No bruit. Nontender. No masses. Liver, nontender, no hepatomegaly. Spleen, nontender, no splenomegaly. MUSCULOSKELETAL: No joint tenderness. No joint swelling. No erythema. NEUROLOGICAL: Normal gait, normal strength, normal tone. SKIN: Warm and dry. OVERALL IMPRESSION: Recurrent angina with increased troponin and shortness of breath, most likely has recurrent hemodynamically significant coronary artery disease. Get an echocardiogram today for his overall LV function and valvular status and proceed with coronary angiography in the a.m. Further care depends upon findings of the angiography. TRANSINT:[id number] Voice Confirmation ID: [id number] DOCUMENT ID: [id number] CONSULT REPORT [id number] ADIEL SIEGEL JEFFREY MD at 1456 CC: [id number] DICTATION DATE: 07/31/18 1315 COMMUNITY ARTS CENTRE MANAGER: 07/31/18 1341 DIS IN 08/01/18 [id number] [place] [address]
--- NOTE | 2018-08-09 14:56 | EC ---
PATIENT:ADIEL SIEGEL DATE OF SERVICE: 07/31/18 SEX: M MEDICAL RECORD: [id number] DATE OF : 57 LOCATION:[facility] AGE OF PATIENT: 63 ADMISSION DATE: 07/31/18 REFERRING PHYSICIAN: INTERPRETING PHYSICIAN: CARLOS WERNER MD ECHOCARDIOGRAM REPORT ECHO CHARGES 4 ECHO COMPLETE Date: 07/31/18 CLINICAL DIAGNOSIS: CHEST PAIN ECHOCARDIOGRAPHIC MEASUREMENTS (adult normal given) AC root (d.<3.7cm) 3.5 cm LV Septum d (<1.2 cm> 1.5 cm Valve Excursion 2.0 cm LV Septum (systole) 1.6 cm Left Atria (s.<4.0cm> 4.4 cm LVPW d(<1.2cm) 1.4 cm RV (d.<2.3cm) 4.2 cm LVPW (sytole) 1.8 cm LV diastole(<5.6CM) 7.5 cm MV E-F(>70mm/sec) cm LV systole 6.1 cm LVOT Diameter 2.0 cm MV exc.(>10mm) 1.3 cm Est.ejection fraction (50-75%) % DOPPLER: LVIT cm/sec A 87.0 cm/sec E 62.0 cm/sec LA cm/sec RVSP 21 mmHg LVOT 114 cm/sec AOP1/2T m/s Asc. Ao 141 cm/sec RVOT cm/sec RA cm/sec PA 148 cm/sec AV Gradient Peak 7.97 mmHg AV Mean 4.45 mmHg AV Area 2.2 cm MV Gradient Peak 3.05 mmHg MV Mean 0.96 mmHg MV Area cm COMMENTS: Block Stacker: Scar CHAMORRO Senior Speech Pathologist: 1 Dr. Werner TAPE# PACS Pericardial Effusion N DATE OF SERVICE: 07/31/2018 PROCEDURE: Echocardiogram. FINDINGS: 1. Left ventricular chamber size is dilated. Left ventricular systolic function is moderately reduced, overall ejection fraction of 35% to 40%. 2. Left atrium is enlarged at 4.4 cm. Right atrium and right ventricle chamber sizes are within normal limits. 3. Valvular structures have normal structure and motion. ECHOCARDIOGRAM REPORT [id number] ADIEL SIEGEL 4. Doppler interrogation reveals no significant valvular insufficiency or stenosis and pulmonary systolic pressure is normal estimated at 21 mmHg. 5. No evidence of pericardial effusion or left ventricular thrombus. TRANSINT:[id number] Voice Confirmation ID: [id number] DOCUMENT ID: [id number] CARLOS WERNER MD at 1456 CC: [id number] DICTATION DATE: 08/01/1833 SR. DIRECTOR: 08/01/18 1132 DIS IN 08/01/18 [facility] [address] [place] [address]
== END 2018-08-01 13:20 | disposition home or self-care (01) | DRG 280 ==
LOC: D.ER 16:48 → D.M3 20:57 → OBSVTIME 20:57 → D.EDHOLD 20:57 → D.M3 07-31 02:35 → D.CLR 08-01 12:45
PROVIDERS: Emergency Medicine; Family Medicine; Internal Medicine Interventional Cardiology; ADMIT Internal Medicine Nephrology
PROC: B2151ZZ Fluoroscopy of Left Heart using Low Osmolar Contrast (ICD-10-PCS; 2018-08-01)
PROC: 4A023N7 Measurement of Cardiac Sampling and Pressure, Left Heart, Percutaneous Approach (ICD-10-PCS; 2018-08-01)
PROC: B2111ZZ Fluoroscopy of Multiple Coronary Arteries using Low Osmolar Contrast (ICD-10-PCS; principal; 2018-08-01 10:05)
DX: I21.4 Non-ST elevation (NSTEMI) myocardial infarction (principal); I50.23 Acute on chronic systolic (congestive) heart failure; I42.9 Cardiomyopathy, unspecified; I25.119 Atherosclerotic heart disease of native coronary artery with unspecified angina pectoris; E78.5 Hyperlipidemia, unspecified; I11.0 Hypertensive heart disease with heart failure

== ENCOUNTER 2018-09-18 09:55 | Emergency (ER) | payer MEDICAID ==
[~2018-09-18] VITALS: Ht 170.2 cm; Wt 98.6 kg
[~2018-09-18 09:55] MED LIST changes: +COREG6.25 MG PO; +FUROSEMIDE20 MG PO; +KLOR-CON 88 MEQ PO
[2018-09-18 09:57] VITALS: Ht 170.2 cm; Wt 98.6 kg
[2018-09-18 10:33] LABS: BASOPHILS 0.2 % (0-2); EOSINOPHILS 0.6 % (0-7); HEMATOCRIT 46.4 % (42.0-54.0); HEMOGLOBIN 16.3 g/dL (13.5-17.5); IMMATURE GRANULOCYTES 0.4 % (0-5); LYMPHOCYTES 13.7 % (15-50); MCH 31.3 pg (26.0-34.0); MCHC 35.1 g/dL (31.0-37.0); MCV 89.1 fL (80.0-100.0); MONOCYTES 6.8 % (2-11); NEUTROPHILS 78.3 % (40-80); PLATELET COUNT 223 10x3/uL (130-400); RBC 5.21 10x6/uL (4.20-6.10); RDW 12.8 % (11.5-14.5); WBC 8.2 10x3/uL (4.8-10.8)
[2018-09-18 10:53] LABS: ALBUMIN 3.5 g/dL (3.4-5.0); ANION GAP 16.1 mmol/L (8-16); BILIRUBIN - TOTAL 0.64 mg/dL (0.2-1.3); CALCIUM 9.3 mg/dL (8.5-10.1); CARBON DIOXIDE 22.9 mmol/L (21.0-32.0); CREATININE - SERUM 1.1 mg/dL (0.6-1.3); PROTEIN - SERUM 7.7 g/dL (6.4-8.2)
[2018-09-18 12:07] LABS: APPEARANCE CLEAR (CLEAR); BILIRUBIN NEGATIVE (NEGATIVE); COLOR YELLOW (YELLOW); EPITHELIAL CELLS 0-5 /hpf (0-5); GLUCOSE NEGATIVE (NEGATIVE); KETONE NEGATIVE (NEGATIVE); NITRITE NEGATIVE (NEGATIVE); PROTEIN 1+ mg/dL (NEGATIVE); RED CELLS - URINE 0-5 /hpf (0-5); WHITE CELLS - URINE RARE /hpf (0-5)
[2018-09-18 12:08] LABS: BACTERIA FEW /hpf (NONE SEEN); MUCUS >1+ /lpf (NONE SEEN)
[2018-09-18] MEDS ORDERED: FUROSEMIDE20 MG PO (13:35)
[2018-09-18 14:05] VITALS: BP 126/84
== END 2018-09-18 14:06 | disposition home or self-care (01) ==
LOC: D.ER 09:55
PROVIDERS: Emergency Medicine
DX: I50.9 Heart failure, unspecified (principal); R42 Dizziness and giddiness; R11.10 Vomiting, unspecified

== ENCOUNTER → 2019-01-14 10:25 | Outpatient (CLI) | payer MEDICAID ==
[2018-09-18 09:57] VITALS: BMI 34.0
== END | disposition home or self-care (01) ==
LOC: D.RAD 10:25
PROVIDERS: ATTEND Nurse Practitioner Family
DX: R05 Cough (principal); R06.02 Shortness of breath

== ENCOUNTER 2019-01-30 19:33 | Observation (INO) | payer MEDICAID ==
[2019-01-30 20:04] LABS: BASOPHILS 0.1 % (0-2); EOSINOPHILS 1.6 % (0-7); HEMATOCRIT 43.9 % (42.0-54.0); HEMOGLOBIN 14.7 g/dL (13.5-17.5); IMMATURE GRANULOCYTES 0.1 % (0-5); LYMPHOCYTES 24.4 % (15-50); MCH 29.8 pg (26.0-34.0); MCHC 33.5 g/dL (31.0-37.0); MCV 88.9 fL (80.0-100.0); MEAN PLATELET VOLUME 9.8 fL (7.4-10.4); NEUTROPHILS 65.8 % (40-80); RBC 4.94 10x6/uL (4.20-6.10); RDW 13.3 % (11.5-14.5); WBC 7.5 10x3/uL (4.8-10.8)
[2019-01-30 20:16] LABS: INR 1.05 (0.85-1.17); PLATELET COUNT 275 10x3/uL (130-400); PROTIME 13.2 SECONDS (11.6-15.0)
[2019-01-30 20:17] LABS: APTT 35.4 SECONDS (22.8-39.4)
[2019-01-30 20:24] LABS: ALBUMIN 3.7 g/dL (3.4-5.0); ALKALINE PHOSPHATASE 136 U/L (46-116); ALT (SGPT) 28 U/L (10-68); BILIRUBIN - TOTAL 0.51 mg/dL (0.2-1.3); CALC OSMOLALITY 279 mosm/kg (275-300); CALCIUM 9.4 mg/dL (8.5-10.1); CARBON DIOXIDE 26.3 mmol/L (21.0-32.0); CHLORIDE - SERUM 101 mmol/L (98-107); CREATININE - SERUM 1.1 mg/dL (0.6-1.3); GLUCOSE 117 mg/dL (74-106); POTASSIUM - SERUM 3.5 mmol/L (3.5-5.1); SODIUM 139 mmol/L (136-145); UREA NITROGEN 14 mg/dL (7-18); eGFR NON AFRICAN AMERICAN 72 mL/min (90-120)
[2019-01-30 20:40] LABS: CKMB 1.8 U/L (0.0-3.6); CREATINE KINASE 81 UL (21-232); MAGNESIUM - SERUM 1.8 mg/dL (1.8-2.4)
[2019-01-30 20:42] LABS: TROPONIN-I 0.076 ng/mL (0.000-0.060)
[2019-01-30 21:13] LABS: MAGNESIUM - SERUM 1.8 mg/dL (1.8-2.4)
[2019-01-30] MEDS ORDERED: GLUCOPHAGE1000 MG PO (22:48)
--- NOTE | 2019-01-30 22:59 | NUR ---
RECEIVED TO ROOM FROM ER VIA WHEELCHAIR. ALERT,ORIENTED WITH NO COMPLAITNS VOICED. SL TO RAC WITHOUT REDNESS OR EDEMA NOTED. ORIENTED TO ROOM. CL IN REACH
[2019-01-30] MEDS ORDERED: ALBUTEROL SULF8.5 GM INH (23:06)
[2019-01-30 23:42] VITALS: BP 116/82; BMI 32.9
--- NOTE | 2019-01-31 03:36 | NUR ---
I have reviewed this patient and I concur with the Shift Assessment completed by the Licensed Practical Nurse today this shift.
[2019-01-31 05:23] VITALS: BP 101/69
[2019-01-31 06:45] LABS: BASOPHILS 0.2 % (0-2); EOSINOPHILS 2.5 % (0-7); HEMOGLOBIN 13.7 g/dL (13.5-17.5); IMMATURE GRANULOCYTES 0.2 % (0-5); LYMPHOCYTES 25.7 % (15-50); MCH 29.5 pg (26.0-34.0); MCHC 33.4 g/dL (31.0-37.0); MCV 88.4 fL (80.0-100.0); MEAN PLATELET VOLUME 10.7 fL (7.4-10.4); MONOCYTES 9.8 % (2-11); NEUTROPHILS 61.6 % (40-80); PLATELET COUNT 251 10x3/uL (130-400); RBC 4.64 10x6/uL (4.20-6.10); RDW 13.4 % (11.5-14.5)
[2019-01-31 06:55] LABS: WBC 5.2 10x3/uL (4.8-10.8)
[2019-01-31 07:27] LABS: CALC OSMOLALITY 284 mosm/kg (275-300); CALCIUM 9.2 mg/dL (8.5-10.1); CHLORIDE - SERUM 106 mmol/L (98-107); CKMB 0.9 U/L (0.0-3.6); CREATINE KINASE 54 UL (21-232); CREATININE - SERUM 0.9 mg/dL (0.6-1.3); GLUCOSE 106 mg/dL (74-106); MAGNESIUM - SERUM 1.9 mg/dL (1.8-2.4); PHOSPHOROUS 3.9 mg/dL (2.5-4.9); POTASSIUM - SERUM 3.6 mmol/L (3.5-5.1); SODIUM 142 mmol/L (136-145); UREA NITROGEN 17 mg/dL (7-18); eGFR NON AFRICAN AMERICAN > 90 mL/min (90-120)
[2019-01-31 07:28] LABS: C-REACTIVE PROTEIN < 0.2 mg/dL (0.0-0.9)
--- NOTE | 2019-01-31 08:47 | NUR ---
PATIENT RECIEVED FROM PREVIOUS SHIFT RESTING IN BED, DENIES CHEST PAIN, OR VISION CHANGES. PATIENT IS DUE IN COURT THIS AM. REQUEST MRI NOT DONE AT THIS TIME PER HIS REQUEST DUE TO UNSURE ABOUT COURT APPEARANCE
[2019-01-31 08:55] VITALS: BP 107/70
[2019-01-31 08:55] LABS: ERYTHROCYTE SEDIMENTATION RATE 17 mm/hr (0-20)
[2019-01-31 13:22] LABS: CREATINE KINASE 54 UL (21-232)
[2019-01-31 13:26] LABS: TROPONIN-I 0.072 ng/mL (0.000-0.060)
[2019-01-31 15:20] LABS: CHOL - HDL RATIO 4.6 ratio (2.3-4.9); LDL-HDL RATIO 2.8 ratio (1.5-3.5)
[2019-01-31] MEDS ORDERED: ASPIRIN325 MG PO (15:47)
[2019-01-31 16:26] LABS: ERYTHROCYTE SEDIMENTATION RATE 7 mm/hr (0-20)
[2019-01-31 17:34] VITALS: BP 125/86
--- NOTE | 2019-01-31 18:03 | NUR ---
IV REMOVED WITH NO REDNESS OR EDEMA. DISCHARGE INSTRUCTIONS GIVEN WITH PATIENT VOICING UNDERSTANDING. PATIENT TAKEN BY WHEELCHAIR PER HIS REQUEST TO FRONT ENTRANCE TO WAIT ON HIS DAUGHTER
--- NOTE | 2019-02-06 10:00 | MORECARE ---
CASE MANAGEMENT DISCHARGE SUMMARY PATIENT: ADIEL SIEGEL UNIT: [id number] ADM DATE: 01/30/19 AGE: 63 : 57 SEX: M ROOM/BED: D.2238 AUTHOR: TONIO SANTOS PHYSICIAN: REFERRING PHYSICIAN: YANIRA MINAYA MD DATE OF SERVICE: 02/06/19 Discharge Plan Patient Name: ADIEL SIEGEL [facility] [facility] 1955 Planned Disposition: Anticipated Discharge Date: Discharge Date: 01/31/2019 Expected LOS: 0 Initial Reviewer: [email or web address] Initial Review Date: 02/06/2019 Generated: 02/06/19 11:00 am Patient Name: ADIEL SIEGEL Page [phone] at 1000 All edits/amendments must be made on the electronic document DICTATION DATE: 02/06/1959 INTERNET PROGRAMMER: EDDIE 02/06/19 0959 RPT#: [id number] DC DATE:01/31/19 STATUS: DIS IN [facility] [address] [place] [address] END OF REPORT
== END 2019-01-31 18:08 | disposition home or self-care (01) ==
LOC: D.ER 19:33 → D.MS 20:57 → OBSVTIME 20:57 → D.MS 20:57
PROVIDERS: Emergency Medicine; ADMIT Internal Medicine Nephrology; ATTEND Internal Medicine Nephrology
DX: R51 Headache (principal); R79.89 Other specified abnormal findings of blood chemistry; I25.10 Atherosclerotic heart disease of native coronary artery without angina pectoris; I11.0 Hypertensive heart disease with heart failure; I50.9 Heart failure, unspecified; E78.5 Hyperlipidemia, unspecified; E11.9 Type 2 diabetes mellitus without complications

== ENCOUNTER 2019-02-21 05:56 | Emergency (ER) | payer MEDICAID ==
[~2019-02-21] VITALS: Ht 170.2 cm; Wt 95.5 kg
[~2019-02-21 05:56] MED LIST changes: +ALBUTEROL SULF8.5 GM INH; +ASPIRIN325 MG PO; +GLUCOPHAGE1000 MG PO
[2019-02-21 06:02] VITALS: Ht 170.2 cm; Wt 95.5 kg
[2019-02-21 06:40] LABS: ALBUMIN 3.7 g/dL (3.4-5.0); ALKALINE PHOSPHATASE 116 U/L (46-116); ALT (SGPT) 30 U/L (10-68); BILIRUBIN - TOTAL 0.27 mg/dL (0.2-1.3); CALC OSMOLALITY 286 mosm/kg (275-300); CALCIUM 9.5 mg/dL (8.5-10.1); CARBON DIOXIDE 28.1 mmol/L (21.0-32.0); CHLORIDE - SERUM 106 mmol/L (98-107); GLUCOSE 127 mg/dL (74-106); PROTEIN - SERUM 7.7 g/dL (6.4-8.2); SODIUM 142 mmol/L (136-145); UREA NITROGEN 18 mg/dL (7-18); eGFR NON AFRICAN AMERICAN 80 mL/min (90-120)
[2019-02-21 06:48] LABS: PRO BNP 3171 pg/mL (0-125)
[2019-02-21 06:55] LABS: BASOPHILS 0.5 % (0-2); EOSINOPHILS 1.7 % (0-7); HEMATOCRIT 42.6 % (42.0-54.0); HEMOGLOBIN 13.8 g/dL (13.5-17.5); IMMATURE GRANULOCYTES 0.3 % (0-5); LYMPHOCYTES 21.8 % (15-50); MCH 28.8 pg (26.0-34.0); MCHC 32.4 g/dL (31.0-37.0); MCV 88.9 fL (80.0-100.0); MEAN PLATELET VOLUME 11.8 fL (7.4-10.4); MONOCYTES 10.7 % (2-11); PLATELET COUNT 239 10x3/uL (130-400); RBC 4.79 10x6/uL (4.20-6.10); RDW 13.2 % (11.5-14.5); WBC 6.4 10x3/uL (4.8-10.8)
[2019-02-21 07:06] VITALS: BP 134/80
== END 2019-02-21 07:06 | disposition home or self-care (01) ==
LOC: D.ER 05:56
PROVIDERS: Emergency Medicine
DX: R06.00 Dyspnea, unspecified (principal)

== ENCOUNTER 2019-08-18 01:20 | Inpatient (IN) | payer MEDICAID ==
[~2019-08-18] VITALS: Ht 170.2 cm; Wt 102.7 kg
[2019-08-18] VITALS (9 sets, daily range): BP systolic 90–132; BP diastolic 56–81; BMI 37.6
[~2019-08-18 01:20] MED LIST changes: -KLOR-CON 88 MEQ PO; +KLOR-CON M2020 MEQ PO
[2019-08-18] MEDS ORDERED: LASIX80 MG PO (01:31)
[2019-08-18] MEDS ORDERED: LANTUS SQ (01:32)
[2019-08-18] MEDS ORDERED: LITE COAT ASPI325 MG PO (01:33)
[2019-08-18] MEDS ORDERED: UNK BP MED (01:34)
[2019-08-18 01:43] LABS: BASOPHILS 0.3 % (0-2); EOSINOPHILS 1.7 % (0-7); HEMATOCRIT 43.3 % (42.0-54.0); HEMOGLOBIN 14.6 g/dL (13.5-17.5); IMMATURE GRANULOCYTES 0.3 % (0-5); LYMPHOCYTES 20.9 % (15-50); MCH 30.4 pg (26.0-34.0); MCHC 33.7 g/dL (31.0-37.0); MEAN PLATELET VOLUME 10.7 fL (7.4-10.4); MONOCYTES 10.5 % (2-11); NEUTROPHILS 66.3 % (40-80); PLATELET COUNT 259 10x3/uL (130-400); RBC 4.81 10x6/uL (4.20-6.10); RDW 13.7 % (11.5-14.5); WBC 7.2 10x3/uL (4.8-10.8)
[2019-08-18 01:59] LABS: CREATININE - SERUM 1.5 mg/dL (0.6-1.3); GLUCOSE 156 mg/dL (74-106); UREA NITROGEN 17 mg/dL (7-18)
[2019-08-18 02:00] LABS: CALC OSMOLALITY 287 mosm/kg (275-300); CALCIUM 8.8 mg/dL (8.5-10.1); CARBON DIOXIDE 25.3 mmol/L (21.0-32.0); CHLORIDE - SERUM 106 mmol/L (98-107); SODIUM 142 mmol/L (136-145); eGFR NON AFRICAN AMERICAN 50 mL/min (90-120)
[2019-08-18 02:08] LABS: APTT 30.5 SECONDS (22.8-39.4); INR 1.02 (0.85-1.17); PROTIME 12.9 SECONDS (11.6-15.0)
[2019-08-18 02:19] LABS: ALBUMIN 3.4 g/dL (3.4-5.0); ALKALINE PHOSPHATASE 84 U/L (46-116); ALT (SGPT) 79 U/L (10-68); BILIRUBIN - TOTAL 0.31 mg/dL (0.2-1.3); CKMB 1.7 U/L (0.0-3.6); CREATINE KINASE 103 UL (21-232); MAGNESIUM - SERUM 2.1 mg/dL (1.8-2.4); PRO BNP 2996 pg/mL (0-125); PROTEIN - SERUM 7.4 g/dL (6.4-8.2)
[2019-08-18 02:20] LABS: TROPONIN-I 0.167 ng/mL (0.000-0.060)
--- NOTE | 2019-08-18 02:20 | NUR ---
PT PROVIDED URINAL.
--- NOTE | 2019-08-18 02:53 | NUR ---
PT REFUSING MORPHINE AND ZOFRAN AT THIS TIME. PT REPORTS DECREASE IN DISCOMFORT AFTER URINATING AND ALSO STATES "I THINK I AM STARTING TO RELAX".
--- NOTE | 2019-08-18 03:44 | NUR ---
ARRIVED VIA W/C FROM ER. NO DISTRESS NOTED.
[2019-08-18] MEDS ORDERED: COZAAR25 MG PO (03:56)
[2019-08-18] MEDS ORDERED: BISOPROLOL FUMAR5 MG PO (03:57)
[2019-08-18] MEDS ORDERED: FENOFIBRATE160 MG PO (03:59)
--- NOTE | 2019-08-18 04:43 | NUR ---
ADMISSION ASSESSMENT, HISTORY AND HOME MED LIST COMPLETED. VSS. SR PER CM HR 61. O2 2LNC. LUNGS DIMINISHED IN BASES BILAT. IV TO L HAND SL. ALERT AND ORIENTED TO PERSON, PLACE AND TIME. FISHER. EXPLAINED RATIONALE FOR NPO UNTIL SEEN BY PARTS SALVAGER. PT STATED UNDERSTANDING. CALL LIGHT WITHIN REACH. NON SLIP SOCKS PLACED ON PT.
--- NOTE | 2019-08-18 06:01 | NUR ---
PT RESTING WITH EYES CLOSED. RESP EVEN AND REGULAR. CALL LIGHT WITHIN REACH.
--- NOTE | 2019-08-18 13:55 | NUR ---
ECHO COMPLETED AT BS. WILL CONT. PLAN OF CARE.
--- NOTE | 2019-08-18 19:30 | NUR ---
REPORT AND INITIAL ROUNDS COMPLETED. PT RESTING IN BED. NO DISTRESS. O2 @ 2L/NC. SB/SR PER TELEMETRY. SALINE LOCK TO LEFT HAND. ALERT/ORIENTED AND AMBULATORY. CPOC.
[2019-08-19 00:45] VITALS: BP 121/80
--- NOTE | 2019-08-19 01:40 | NUR ---
NEW ORDERS PER DR MILLER NOW INIITIATED. IV ROCEPHIN UP AND INFUSING TO LEFT HAND. IV SOLUMEDROL ADMINISTERED. PT GIVEN SNACKS/DRINKS AT HIS REQUEST. PT TEACHING ON NEW MED ORDERS. CPOC.
[2019-08-19 04:25] VITALS: BP 93/66
--- NOTE | 2019-08-19 05:05 | NUR ---
NO CHANGE FROM INITIAL SHIFT ASSESSMENT. CALL LIGHT IN REACH. CPOC.
[2019-08-19 05:08] LABS: BASOPHILS 0.2 % (0-2); EOSINOPHILS 0.5 % (0-7); HEMATOCRIT 44.6 % (42.0-54.0); HEMOGLOBIN 14.7 g/dL (13.5-17.5); IMMATURE GRANULOCYTES 0.6 % (0-5); LYMPHOCYTES 11.3 % (15-50); MCH 29.8 pg (26.0-34.0); MCV 90.5 fL (80.0-100.0); MEAN PLATELET VOLUME 11.6 fL (7.4-10.4); MONOCYTES 3.4 % (2-11); PLATELET COUNT 252 10x3/uL (130-400); RBC 4.93 10x6/uL (4.20-6.10); RDW 13.7 % (11.5-14.5); WBC 8.1 10x3/uL (4.8-10.8)
[2019-08-19 05:28] LABS: ALBUMIN 3.5 g/dL (3.4-5.0); BILIRUBIN - TOTAL 0.25 mg/dL (0.2-1.3); CREATININE - SERUM 1.4 mg/dL (0.6-1.3); POTASSIUM - SERUM 3.4 mmol/L (3.5-5.1); PROTEIN - SERUM 7.5 g/dL (6.4-8.2)
[2019-08-19 05:43] LABS: ANION GAP 10.6 mmol/L (8-16); CARBON DIOXIDE 31.8 mmol/L (21.0-32.0)
[2019-08-19 08:00] VITALS: BP 130/93
[2019-08-19 14:01] VITALS: Ht 170.2 cm; Wt 102.7 kg
[2019-08-19 14:55] VITALS: BP 105/59
[2019-08-19 17:42] VITALS: BP 115/71
[2019-08-19 20:41] VITALS: BP 110/55
[2019-08-20 00:35] VITALS: BP 113/74
[2019-08-20 04:00] VITALS: BP 107/63
[2019-08-20 05:43] LABS: BASOPHILS 0 % (0-2); EOSINOPHILS 0 % (0-7); HEMATOCRIT 44.3 % (42.0-54.0); HEMOGLOBIN 14.7 g/dL (13.5-17.5); IMMATURE GRANULOCYTES 0.2 % (0-5); LYMPHOCYTES 4.9 % (15-50); MCHC 33.2 g/dL (31.0-37.0); MCV 90.4 fL (80.0-100.0); MEAN PLATELET VOLUME 11.9 fL (7.4-10.4); MONOCYTES 3.2 % (2-11); NEUTROPHILS 91.7 % (40-80); PLATELET COUNT 241 10x3/uL (130-400); RDW 13.7 % (11.5-14.5)
[2019-08-20 06:13] LABS: ALBUMIN 3.6 g/dL (3.4-5.0); ANION GAP 15.3 mmol/L (8-16); BILIRUBIN - TOTAL 0.16 mg/dL (0.2-1.3); CALCIUM 9.7 mg/dL (8.5-10.1); CARBON DIOXIDE 27.4 mmol/L (21.0-32.0); CREATININE - SERUM 1.5 mg/dL (0.6-1.3); MAGNESIUM - SERUM 2.2 mg/dL (1.8-2.4); POTASSIUM - SERUM 3.7 mmol/L (3.5-5.1); PROTEIN - SERUM 7.5 g/dL (6.4-8.2)
[2019-08-20 06:35] LABS: WBC 13.3 10x3/uL (4.8-10.8)
--- NOTE | 2019-08-20 07:15 | NUR ---
RECEIVED IN BED AAOX4 RESP UNLABORED SKIN W/D COLOR WNL DENIES ANY NEEDS OR DISCOMFORT
[2019-08-20 11:01] VITALS: BP 149/88
--- NOTE | 2019-08-20 13:18 | NUR ---
MICHAEL GLASS APN TO STATES PATIENT CAN BE DISCHARGED FROM THEIR STANDPOINT.
[2019-08-20] MEDS ORDERED: COREG 3.1253.125 MG PO (16:30)
[2019-08-20] MEDS ORDERED: ENTRESTO 24 MG1 EACH PO (16:30)
[2019-08-20] MEDS ORDERED: OMNICEF300 MG PO (16:32)
[2019-08-20] MEDS ORDERED: AZELASTINE137 MCG/0. NASAL (16:33)
[2019-08-20] MEDS ORDERED: FLUTICASONE PRO16 GM NASAL (16:33)
[2019-08-20] MEDS ORDERED: PREDNISONE10 MG PO (16:36)
[2019-08-20] MEDS ORDERED: SINGULAIR10 MG PO (16:36)
--- NOTE | 2019-08-20 17:20 | MORECARE ---
CASE MANAGEMENT DISCHARGE SUMMARY PATIENT: ADIEL SIEGEL UNIT: [id number] ADM DATE: 08/18/19 AGE: 64 : 57 SEX: M ROOM/BED: D.3115 AUTHOR: TOM,DOC PHYSICIAN: REFERRING PHYSICIAN: SMITH SHIPMAN MD DATE OF SERVICE: 08/20/19 Discharge Plan Patient Name: ADIEL SIEGEL Facility: [facility]:[place] : 1955 Planned Disposition: Home Anticipated Discharge Date: 08/20/19 Discharge Date: Expected LOS: 2 Initial Reviewer: [email or web address] Initial Review Date: 08/20/2019 Generated: 08/20/19 6:19 pm Comments DCP- Discharge Planning Updated by [email or web address]: Teo Murray on 08/20/19 4:[address] Patient Name: ADIEL SIEGEL Admission Status: ER Accout number: [id number] Admission Date: 08-18-2019 : 1955 Admission Diagnosis: Attending: SMITH SHIPMAN Current LOS: 2 Anticipated DC Date: 08-20-2019 Planned Disposition: Home Primary Insurance: MEDICAID [place] Discharge Planning Comments: CM MET WITH PT IN ROOM TO DISCUSS DISCHARGE PLANNING AND NEEDS. PT REPORTS LIVING AT HOME INDEPENDENTLY AND ALONE PT HAS NEBULIZER WITH NO MEDICAL EQUIPMENT PROVIDER PREFERENCE. PT HAS NO OUTSIDE SERVICES ASSISTING IN THE HOME. CM DISCUSSED AVAILABILITY OF HOME HEALTH, REHAB SERVICES AND MEDICAL EQUIPMENT. PT DENIES DISCHARGE NEEDS, REPORTS HE IS DRIVING HIMSELF HOME FOR DISCHARGE TODAY. CM PROVIDED AND DISCUSSED [facility] INFORMATION PT HAS NO PRIMARY CARE DOCTOR. ARMY MANAGER NURSE NOTIFIED. Shank Cutter: Teo Murray DCPIA - Discharge Planning Initial Assessment Updated by [email or web address]: Teo Murray on 08/20/19 5:14 pm * Is the patient Alert and Oriented? Yes * How many steps to enter\exit or inside your home? * PCP NONE * Pharmacy [facility] * Preadmission Environment Home Alone * ADLs Independent * Equipment Nebulizer * Other Equipment NO MEDICAL EQUIPMENT PROVIDER PREFERENCE * List name and contact numbers for known caregivers / representatives who currently or will assist patient after discharge: NOVEMBER SIEGEL, BRITTANIE, * Verbal permission to speak to the caregivers and representatives has been obtained from the patient. N/A * Community resources currently utilized None * Please name any agencies selected above. NONE * Additional services required to return to the preadmission environment? No * Can the patient safely return to the preadmission environment? Yes * Has this patient been hospitalized within the prior 30 days at any hospital? No Patient Name: ADIEL SIEGEL Page 54568 at 1720 All edits/amendments must be made on the electronic document DICTATION DATE: 08/20/191718 MERCHANDISE DIRECTOR: EDDIE 08/20/191718 RPT#: [id number] DC DATE: STATUS: ADM IN [facility] [address] [place] [address] END OF REPORT
--- NOTE | 2019-08-20 19:24 | NUR ---
PATIENT TELEMETRY REMOVED AND RETURNED TO CANOE INSPECTOR. IV REMOVED CATHETER INTACT. DISCHARGE INSTRUCTION SIGNED.
[2019-08-21 21:06] LABS: IMMUNOGLOBULIN E 83 IU/mL (6-495)
== END 2019-08-20 19:25 | disposition home or self-care (01) | DRG 280 ==
LOC: D.ER 01:20 → D.M2 02:55
PROVIDERS: Family Medicine; Internal Medicine Pulmonary Disease; ADMIT Emergency Medicine; ATTEND Emergency Medicine
DX: I24.8 Other forms of acute ischemic heart disease (principal); I21.A1 Myocardial infarction type 2; I50.23 Acute on chronic systolic (congestive) heart failure; N17.9 Acute kidney failure, unspecified; J44.1 Chronic obstructive pulmonary disease with (acute) exacerbation; I13.0 Hypertensive heart and chronic kidney disease with heart failure and stage 1 through stage 4 chronic kidney disease, or unspecified chronic kidney disease; J44.0 Chronic obstructive pulmonary disease with (acute) lower respiratory infection; I25.5 Ischemic cardiomyopathy; I25.110 Atherosclerotic heart disease of native coronary artery with unstable angina pectoris; E78.5 Hyperlipidemia, unspecified; E11.65 Type 2 diabetes mellitus with hyperglycemia; E11.21 Type 2 diabetes mellitus with diabetic nephropathy; E11.22 Type 2 diabetes mellitus with diabetic chronic kidney disease; N18.9 Chronic kidney disease, unspecified; J20.9 Acute bronchitis, unspecified; Z86.73 Personal history of transient ischemic attack (TIA), and cerebral infarction without residual deficits; Z87.891 Personal history of nicotine dependence

== ENCOUNTER 2020-02-29 14:42 | Emergency (ER) | payer MEDICAID ==
[~2020-02-29] VITALS: Ht 170.2 cm; Wt 104.5 kg
[~2020-02-29 14:42] MED LIST changes: +AZELASTINE137 MCG/0. NASAL; +BISOPROLOL FUMAR5 MG PO; +COZAAR25 MG PO; +ENTRESTO 24 MG1 EACH PO; +FENOFIBRATE160 MG PO; +FLUTICASONE PRO16 GM NASAL; +LANTUS SQ; +LASIX80 MG PO; +LITE COAT ASPI325 MG PO; +OMNICEF300 MG PO; +PREDNISONE10 MG PO; +SINGULAIR10 MG PO; +UNK BP MED
[2020-02-29 14:45] VITALS: Ht 170.2 cm; Wt 104.5 kg
[2020-02-29 15:54] LABS: BASOPHILS 0.2 % (0-2); EOSINOPHILS 0.4 % (0-7); HEMOGLOBIN 14.6 g/dL (13.5-17.5); IMMATURE GRANULOCYTES 0.3 % (0-5); LYMPHOCYTES 7.6 % (15-50); MCH 30.6 pg (26.0-34.0); MCHC 33.2 g/dL (31.0-37.0); MCV 92.2 fL (80.0-100.0); MEAN PLATELET VOLUME 10.2 fL (7.4-10.4); MONOCYTES 11.4 % (2-11); NEUTROPHILS 80.1 % (40-80); PLATELET COUNT 240 10x3/uL (130-400); RBC 4.77 10x6/uL (4.20-6.10); RDW 12.9 % (11.5-14.5); WBC 10.3 10x3/uL (4.8-10.8)
[2020-02-29 16:26] LABS: ANION GAP 13.9 mmol/L (8-16); CALCIUM 8.8 mg/dL (8.5-10.1); CARBON DIOXIDE 24.6 mmol/L (21.0-32.0); CREATININE - SERUM 1.3 mg/dL (0.6-1.3); POTASSIUM - SERUM 3.5 mmol/L (3.5-5.1)
[2020-02-29 16:32] LABS: ALBUMIN 3.3 g/dL (3.4-5.0); BILIRUBIN - TOTAL 0.47 mg/dL (0.2-1.3); PROTEIN - SERUM 7.1 g/dL (6.4-8.2)
[2020-02-29] MEDS ORDERED: ELIQUIS5 MG (16:38)
[2020-02-29] MEDS ORDERED: ASPIRIN325 MG PO (16:38)
[2020-02-29] MEDS ORDERED: BUMEX2 MG (16:38)
[2020-02-29] MEDS ORDERED: NEURONTIN 300300 MG PO (17:05)
[2020-02-29 18:09] VITALS: BP 108/69
== END 2020-02-29 18:10 | disposition home or self-care (01) ==
LOC: D.ER 14:42
PROVIDERS: Family Medicine
DX: E11.40 Type 2 diabetes mellitus with diabetic neuropathy, unspecified (principal); Z86.73 Personal history of transient ischemic attack (TIA), and cerebral infarction without residual deficits; I25.2 Old myocardial infarction; J44.9 Chronic obstructive pulmonary disease, unspecified

== ENCOUNTER 2020-04-05 21:36 | Inpatient (IN) | payer MEDICAID ==
[~2020-04-05] VITALS: Ht 170.2 cm; Wt 104.3 kg
[~2020-04-05 21:36] MED LIST changes: +BUMEX2 MG PO; +ELIQUIS5 MG
[2020-04-05] MEDS ORDERED: ZYLOPRIM100 MG PO (21:47)
[2020-04-05 22:21] LABS: BASOPHILS 0.2 % (0-2); EOSINOPHILS 3.4 % (0-7); HEMOGLOBIN 14.7 g/dL (13.5-17.5); IMMATURE GRANULOCYTES 0.4 % (0-5); LYMPHOCYTES 26.5 % (15-50); MCH 29.8 pg (26.0-34.0); MCHC 32.7 g/dL (31.0-37.0); MCV 91.3 fL (80.0-100.0); MEAN PLATELET VOLUME 10.9 fL (7.4-10.4); MONOCYTES 9.9 % (2-11); NEUTROPHILS 59.6 % (40-80); PLATELET COUNT 219 10x3/uL (130-400); RBC 4.93 10x6/uL (4.20-6.10); RDW 13.1 % (11.5-14.5); WBC 4.7 10x3/uL (4.8-10.8)
[2020-04-05 22:31] LABS: APTT 33.7 SECONDS (22.8-39.4); INR 1.02 (0.85-1.17); PROTIME 13.4 SECONDS (11.6-15.0)
[2020-04-05 22:32] LABS: D-DIMER-QUANTITATIVE 0.35 ug/mLFEU (0.20-0.54)
[2020-04-05 22:45] VITALS: BP 114/70
[2020-04-05 22:45] LABS: ALBUMIN 3.5 g/dL (3.4-5.0); ALKALINE PHOSPHATASE 89 U/L (30-120); ALT (SGPT) 51 U/L (10-68); CALC OSMOLALITY 281 mosm/kg (275-300); CALCIUM 8.6 mg/dL (8.5-10.1); CARBON DIOXIDE 31.8 mmol/L (21.0-32.0); CHLORIDE - SERUM 102 mmol/L (98-107); CKMB 1.2 U/L (0.0-3.6); CREATINE KINASE 173 UL (21-232); CREATININE - SERUM 1.1 mg/dL (0.6-1.3); GLUCOSE 166 mg/dL (74-106); PRO BNP 2704 pg/mL (0-125); PROTEIN - SERUM 7.1 g/dL (6.4-8.2); SODIUM 139 mmol/L (136-145); UREA NITROGEN 13 mg/dL (7-18); eGFR NON AFRICAN AMERICAN 71 mL/min (90-120)
[2020-04-05 22:49] LABS: POTASSIUM - SERUM 2.7 mmol/L (3.5-5.1)
[2020-04-06] VITALS (11 sets, daily range): BP systolic 97–141; BP diastolic 54–85; Ht 170.2 cm; Wt 104.3 kg
--- NOTE | 2020-04-06 | NUR ---
PT NOT TOLERATING IV KCL WELL. PT GIVEN ICE PACKS, INFORMED. SEE EMAR.
--- NOTE | 2020-04-06 01:00 | NUR ---
PT URINATED 400ML AT THIS TIME.
--- NOTE | 2020-04-06 01:00 | NUR ---
PT NOT TOLERATING POTTASSIUM WELL C/O BURNING EVEN AT SLOW RATE. MD INFORMED SEE EMAR
--- NOTE | 2020-04-06 01:30 | NUR ---
1ST BAG OF POTASSIUM COMPLETE
--- NOTE | 2020-04-06 02:28 | NUR ---
SECOND BAG KCL COMPLETE
--- NOTE | 2020-04-06 03:44 | NUR ---
PT C/O NAUSEA SEE EMAR. PT UP TO URINATE 300ML AT THIS TIME.
--- NOTE | 2020-04-06 04:31 | NUR ---
PT STATES THAT HE FEELING BETTER BUT STILL A LITTLE NAUSEATED, INFORMED SEE EMAR.
[2020-04-06 06:20] LABS: BASOPHILS 0.4 % (0-2); EOSINOPHILS 1.6 % (0-7); HEMATOCRIT 45.1 % (42.0-54.0); HEMOGLOBIN 14.6 g/dL (13.5-17.5); IMMATURE GRANULOCYTES 0.1 % (0-5); MCHC 32.4 g/dL (31.0-37.0); MCV 92.8 fL (80.0-100.0); MEAN PLATELET VOLUME 11.2 fL (7.4-10.4); MONOCYTES 8.6 % (2-11); NEUTROPHILS 79.3 % (40-80); PLATELET COUNT 218 10x3/uL (130-400); RBC 4.86 10x6/uL (4.20-6.10); RDW 13.2 % (11.5-14.5)
--- NOTE | 2020-04-06 06:30 | NUR ---
4TH BAG KCL COMPLETE
[2020-04-06 06:37] LABS: WBC 7.7 10x3/uL (4.8-10.8)
--- NOTE | 2020-04-06 07:00 | NUR ---
ASSUMED CARE OF PT AT THIS TIME.
[2020-04-06 07:25] LABS: ALBUMIN 3.5 g/dL (3.4-5.0); ALKALINE PHOSPHATASE 78 U/L (30-120); ALT (SGPT) 46 U/L (10-68); BILIRUBIN - TOTAL 0.43 mg/dL (0.2-1.3); CALC OSMOLALITY 284 mosm/kg (275-300); CALCIUM 8.3 mg/dL (8.5-10.1); CARBON DIOXIDE 31.7 mmol/L (21.0-32.0); CHLORIDE - SERUM 103 mmol/L (98-107); CREATINE KINASE 132 UL (21-232); CREATININE - SERUM 1.3 mg/dL (0.6-1.3); GLUCOSE 168 mg/dL (74-106); MAGNESIUM - SERUM 1.9 mg/dL (1.8-2.4); SODIUM 141 mmol/L (136-145); TROPONIN-I 0.032 ng/mL (0.000-0.060); UREA NITROGEN 13 mg/dL (7-18); eGFR NON AFRICAN AMERICAN 59 mL/min (90-120)
[2020-04-06 07:26] LABS: POTASSIUM - SERUM 3.3 mmol/L (3.5-5.1)
--- NOTE | 2020-04-06 14:40 | NUR ---
RECEIVE REPORT FROM ALLA RODRIGUEZ IN ED. AWAITING PATIENT ARRIVAL TO FLOOR.
--- NOTE | 2020-04-06 15:00 | NUR ---
PATIENT ARRIVED VIA BED FROM ED. VITALS 110/72, 65, 18, 98.6, 96% ROOM AIR. NO SIGNS OF DISTRESS. WILL CONTINUE PLAN OF CARE AND SAFETY PRECAUTIONS.
--- NOTE | 2020-04-06 19:00 | NUR ---
AWAKE AND MAKING MANY NEEDS KNOWN PT IS WANTING TO DISCUSS THINGS OTHER THAN HOSPITALIOSATION AND CLAIMS TO NOT KNOW WHAT MEDS HE IS TAKING BED LOW AND LOCKED CALL LIGHT PUT IN REACH OF PT
--- NOTE | 2020-04-06 20:13 | NUR ---
I NOTED TELEMETRY HAS NOT BEEN APPLIED WILL APPLY NOW
[2020-04-07] VITALS: BP 97/56
--- NOTE | 2020-04-07 00:06 | NUR ---
FOUND IV TO BE INFILTRATED REMOVED CATH INTACT AND RESTARTED WITH 20 GUAGE TO LEFT ARM
[2020-04-07 04:00] VITALS: BP 100/59
[2020-04-07 05:19] LABS: BASOPHILS 0.3 % (0-2); EOSINOPHILS 3.4 % (0-7); HEMATOCRIT 43.9 % (42.0-54.0); IMMATURE GRANULOCYTES 0.3 % (0-5); LYMPHOCYTES 20.7 % (15-50); MCH 29.9 pg (26.0-34.0); MCHC 31.9 g/dL (31.0-37.0); MCV 93.6 fL (80.0-100.0); MEAN PLATELET VOLUME 11.3 fL (7.4-10.4); MONOCYTES 13.4 % (2-11); NEUTROPHILS 61.9 % (40-80); PLATELET COUNT 216 10x3/uL (130-400); RBC 4.69 10x6/uL (4.20-6.10); RDW 13.3 % (11.5-14.5); WBC 5.9 10x3/uL (4.8-10.8)
[2020-04-07 06:08] LABS: ALBUMIN 3.2 g/dL (3.4-5.0); ANION GAP 6.7 mmol/L (8-16); BILIRUBIN - TOTAL 0.29 mg/dL (0.2-1.3); CALCIUM 8.6 mg/dL (8.5-10.1); CARBON DIOXIDE 34.6 mmol/L (21.0-32.0); CREATININE - SERUM 1.3 mg/dL (0.6-1.3); POTASSIUM - SERUM 3.3 mmol/L (3.5-5.1); PROTEIN - SERUM 6.6 g/dL (6.4-8.2)
--- NOTE | 2020-04-07 07:00 | NUR ---
RECEIVED REPORT. ASSUMED CARE OF PATIENT. PATIENT RESTING WELL ON RIGHT LATERAL SIDE WITH EYES CLOSED. RESP EVEN AND UNLABORED. BEDSIDE SHIFT REPORT COMPLETE. WHITE BOARD UPDATED. NO DISTRESS. CALL LIGHT WITHIN REACH.
[2020-04-07 09:36] VITALS: BP 104/62
--- NOTE | 2020-04-07 11:11 | NUR ---
FSBS 133. NO INSULIN ADMINISTERED PER SLIDING SCALE.
--- NOTE | 2020-04-07 13:07 | NUR ---
20 GAUGE IV REMOVED FROM LEFT FOREARM. NO BLEEDING FROM SITE. CATHETER TIP INTACT. 2X2 GAUZE APPLIED AND SECURED WITH BANDAID. DISCHARGE INSTRUCTIONS PROVIDED. PATIENT VERBALIZED UNDERSTANDING OF ALL INSTRUCTIONS PROVIDED. PATIENT STATES THAT HE DID FILL HIS MEDICINE THROUGH MEDICAID HOWEVER THE SYSTEM DOES NOT REPORT ANY MEDICATION BEING FILLED SINCE 08/2019. HOSPITALITY SERVICES MANAGER RETURNED TO [employer] PATIENT GETTING DRESSING HE HAS HIS PERSONAL CAR HERE IN THE PARKING LOT AND WILL BE DRIVING HIMSELF HOME.
--- NOTE | 2020-04-07 13:23 | NUR ---
PATIENT LEFT UNIT VIA WHEELCHAIR AT THIS TIME WITH ALL PERSONAL BELONGINGS AND IN NO ACUTE DISTRESS. PATIENT HAS HIS CAR IN THE PARKING LOT AND ABLE TO DRIVE SELF. PATIENT THANKED THIS SENIOR SYSTEMS SOFTWARE ENGINEER FOR ALL CARES RENDERED DURING THIS HOSPITAL STAY.
--- NOTE | 2020-04-07 14:35 | MORECARE ---
CASE MANAGEMENT DISCHARGE SUMMARY PATIENT: ADIEL SIEGEL UNIT: [id number] ADM DATE: 04/05/20 AGE: 65 : 57 SEX: M ROOM/BED: D.2106 AUTHOR: TONIO SANTOS PHYSICIAN: REFERRING PHYSICIAN: SONYA JI MD DATE OF SERVICE: 04/07/20 Discharge Plan Patient Name: ADIEL SIEGEL [facility] [facility] 1955 Planned Disposition: Home Anticipated Discharge Date: Discharge Date: 04/07/2020 Expected LOS: Initial Reviewer: [email or web address] Initial Review Date: 04/06/2020 Generated: 04/07/20 3:35 pm Comments DCP- Discharge Planning Updated by [email or web address]: Hilda Mott on 04/07/20 1:[address] PATIENT HAS DC ORDER. HE AMBULATED AT A BRISK RATE IN THE [place] 250 FEET ON ROOM AIR WITH A PULSE OX. HIS OXYGEN SATURATION IS 98%. HE DOES NOT QUALIFY FOR HOME OXYGEN. PATIENT STATES HE IS UNABLE TO SELF PAY FOR OXYGEN. Patient Name: ADIEL SIEGEL Page 82056 at 1435 All edits/amendments must be made on the electronic document DICTATION DATE: 04/07/201434 TRAVELING SALES REPRESENTATIVE: EDDIE 04/07/20 143 RPT#: [id number] DC DATE:04/07/20 STATUS: DIS IN [facility] [address] [place] [address] END OF REPORT
--- NOTE | 2020-04-09 07:01 | MORECARE ---
CASE MANAGEMENT DISCHARGE SUMMARY PATIENT: ADIEL SIEGEL UNIT: [id number] ADM DATE: 04/05/20 AGE: 65 : 57 SEX: M ROOM/BED: D.2106 AUTHOR: TONIO SANTOS PHYSICIAN: REFERRING PHYSICIAN: SONYA JI MD DATE OF SERVICE: 04/09/20 Discharge Plan Patient Name: ADIEL SIEGEL [facility] : 1955 Planned Disposition: Home Anticipated Discharge Date: Discharge Date: 04/07/2020 Expected LOS: 0 Initial Reviewer: [email or web address] Initial Review Date: 04/06/2020 Generated: 04/09/20 8:00 am Comments DCP- Discharge Planning Updated by [email or web address]: Hilda Mott on 04/07/20 1:[address] PATIENT HAS DC ORDER. HE AMBULATED AT A BRISK RATE IN THE [place] 250 FEET ON ROOM AIR WITH A PULSE OX. HIS OXYGEN SATURATION IS 98%. HE DOES NOT QUALIFY FOR HOME OXYGEN. PATIENT STATES HE IS UNABLE TO SELF PAY FOR OXYGEN. Last DP export: 04/07/20 1:35 p Patient Name: ADIEL SIEGEL Page [phone] at 0701 All edits/amendments must be made on the electronic document DICTATION DATE: 04/09/20 07 CAR ESCORT: EDDIE 04/09/20 07 RPT#: [id number] DC DATE:04/07/20 STATUS: DIS IN [facility] [address] [place] [address] END OF REPORT
== END 2020-04-07 13:24 | disposition home or self-care (01) | DRG 293 ==
LOC: D.ER 21:36 → D.EDHOLD 23:58 → D.M2 23:58
PROVIDERS: Family Medicine; ADMIT Family Medicine Adult Medicine; ATTEND Family Medicine Adult Medicine
DX: I11.0 Hypertensive heart disease with heart failure (principal); E87.6 Hypokalemia; I50.23 Acute on chronic systolic (congestive) heart failure; I25.110 Atherosclerotic heart disease of native coronary artery with unstable angina pectoris; E11.65 Type 2 diabetes mellitus with hyperglycemia; E78.5 Hyperlipidemia, unspecified; J44.9 Chronic obstructive pulmonary disease, unspecified; I25.5 Ischemic cardiomyopathy; Z87.891 Personal history of nicotine dependence; Z86.73 Personal history of transient ischemic attack (TIA), and cerebral infarction without residual deficits

== ENCOUNTER 2020-05-14 19:43 | Inpatient (IN) | payer MEDICAID ==
[~2020-05-14] VITALS: Ht 170.2 cm; Wt 104.3 kg
[~2020-05-14 19:43] MED LIST changes: -ELIQUIS5 MG; +ELIQUIS5 MG PO; +LANTUS INS100 UNITS/ SC; -LANTUS SQ; +ZYLOPRIM100 MG PO
[2020-05-14 20:23] LABS: BASOPHILS 0.3 % (0-2); EOSINOPHILS 2.2 % (0-7); HEMATOCRIT 41.1 % (42.0-54.0); IMMATURE GRANULOCYTES 0.3 % (0-5); LYMPHOCYTES 23.1 % (15-50); MCH 30.8 pg (26.0-34.0); MCHC 34.1 g/dL (31.0-37.0); MCV 90.3 fL (80.0-100.0); MEAN PLATELET VOLUME 10.9 fL (7.4-10.4); MONOCYTES 7.8 % (2-11); NEUTROPHILS 66.3 % (40-80); PLATELET COUNT 201 10x3/uL (130-400); RBC 4.55 10x6/uL (4.20-6.10); RDW 13.4 % (11.5-14.5); WBC 5.9 10x3/uL (4.8-10.8)
[2020-05-14 20:27] LABS: APTT 30.9 SECONDS (22.8-39.4); INR 1.09 (0.85-1.17); PROTIME 14.1 SECONDS (11.6-15.0)
[2020-05-14 20:30] LABS: CALC OSMOLALITY 282 mosm/kg (275-300); CALCIUM 9.1 mg/dL (8.5-10.1); CARBON DIOXIDE 29.1 mmol/L (21.0-32.0); CHLORIDE - SERUM 102 mmol/L (98-107); CREATININE - SERUM 1.2 mg/dL (0.6-1.3); SODIUM 138 mmol/L (136-145); UREA NITROGEN 17 mg/dL (7-18); eGFR NON AFRICAN AMERICAN 65 mL/min (90-120)
[2020-05-14 20:37] LABS: GLUCOSE 184 mg/dL (74-106)
[2020-05-14 20:47] LABS: ALBUMIN 3.5 g/dL (3.4-5.0); ALKALINE PHOSPHATASE 95 U/L (30-120); ALT (SGPT) 34 U/L (10-68); BILIRUBIN - TOTAL 0.49 mg/dL (0.2-1.3); CKMB 1.9 U/L (0.0-3.6); CREATINE KINASE 177 UL (21-232); PRO BNP 2355 pg/mL (0-125); PROTEIN - SERUM 6.9 g/dL (6.4-8.2)
--- NOTE | 2020-05-14 21:10 | NUR ---
PT GIVEN ICE CHIPS, DENIES FURTHER NEEDS. CALL LIGHT IN REACH. WILL CONTINUE TO MONITOR.
[2020-05-14 21:39] LABS: BILIRUBIN NEGATIVE (NEGATIVE); KETONE NEGATIVE (NEGATIVE); NITRITE NEGATIVE (NEGATIVE); UROBILINOGEN NORMAL mg/dL (< 2)
[2020-05-14 22:00] VITALS: BP 115/69
[2020-05-14 22:22] LABS: CKMB 1.6 U/L (0.0-3.6); CREATINE KINASE 158 UL (21-232)
[2020-05-14 22:42] LABS: TROPONIN-I 0.052 ng/mL (0.000-0.060)
--- NOTE | 2020-05-14 22:43 | NUR ---
PT GIVEN BLANKET, DENIES FURTHER NEEDS AT THIS TIME. CALL LIGHT IN REACH. WILL CONTINUE TO MONITOR.
--- NOTE | 2020-05-14 23:40 | NUR ---
COVID SWAB DONE AND TAKEN TO LAB.
[2020-05-15] VITALS (10 sets, daily range): BP systolic 99–131; BP diastolic 41–93; BMI 36.1
--- NOTE | 2020-05-15 00:24 | NUR ---
ANSWERED PT'S CALL LIGHT, PT GIVEN URINAL AND HEAD OF BED ADJUSTED TO LEVEL OF COMFORT. PT DENIES FURTHER NEEDS AT THIS TIME. CALL LIGHT IN REACH. WILL CONTINUE TO MONITOR.
--- NOTE | 2020-05-15 02:56 | NUR ---
ANSWERED PT'S CALL LIGHT, HEAD OF BED ADJUSTED TO LEVEL OF COMFORT, DENIES FURTHER NEEDS AT THIS TIME. WILL CONTINUE TO MONITOR.
--- NOTE | 2020-05-15 03:28 | NUR ---
LAB AT PT'S BEDSIDE
[2020-05-15 03:33] LABS: BASOPHILS 0.3 % (0-2); EOSINOPHILS 1.9 % (0-7); HEMATOCRIT 39.6 % (42.0-54.0); HEMOGLOBIN 13.3 g/dL (13.5-17.5); IMMATURE GRANULOCYTES 0.3 % (0-5); LYMPHOCYTES 18.7 % (15-50); MCH 30.6 pg (26.0-34.0); MCHC 33.6 g/dL (31.0-37.0); MCV 91.2 fL (80.0-100.0); MEAN PLATELET VOLUME 10.3 fL (7.4-10.4); MONOCYTES 8.5 % (2-11); NEUTROPHILS 70.3 % (40-80); PLATELET COUNT 185 10x3/uL (130-400); RBC 4.34 10x6/uL (4.20-6.10); RDW 13.5 % (11.5-14.5); WBC 6.4 10x3/uL (4.8-10.8)
[2020-05-15 03:59] LABS: ALBUMIN 3.1 g/dL (3.4-5.0); ALKALINE PHOSPHATASE 80 U/L (30-120); ALT (SGPT) 34 U/L (10-68); BILIRUBIN - TOTAL 0.41 mg/dL (0.2-1.3); CALC OSMOLALITY 287 mosm/kg (275-300); CALCIUM 8.4 mg/dL (8.5-10.1); CARBON DIOXIDE 29.3 mmol/L (21.0-32.0); CHLORIDE - SERUM 104 mmol/L (98-107); CKMB 1.3 U/L (0.0-3.6); CREATINE KINASE 117 UL (21-232); CREATININE - SERUM 1.1 mg/dL (0.6-1.3); GLUCOSE 137 mg/dL (74-106); POTASSIUM - SERUM 3.1 mmol/L (3.5-5.1); PROTEIN - SERUM 6.2 g/dL (6.4-8.2); SODIUM 143 mmol/L (136-145); TROPONIN-I 0.059 ng/mL (0.000-0.060); UREA NITROGEN 15 mg/dL (7-18); eGFR NON AFRICAN AMERICAN 71 mL/min (90-120)
--- NOTE | 2020-05-15 06:46 | NUR ---
RT AT PT'S BEDSIDE TO GIVE TREATMENT
--- NOTE | 2020-05-15 08:30 | NUR ---
0715 FINGERSTICK BLOOD SUGAR 139
--- NOTE | 2020-05-15 08:33 | NUR ---
DR SAMANO NOTIFIED OF CONSULTATION, STATES TO FEED PATIENT
[2020-05-15 10:24] LABS: MAGNESIUM - SERUM 1.8 mg/dL (1.8-2.4); PHOSPHOROUS 3.6 mg/dL (2.5-4.9); URIC ACID 10.9 mg/dL (2.6-7.2)
[2020-05-15 10:33] LABS: CKMB 1.6 U/L (0.0-3.6); CREATINE KINASE 110 UL (21-232); TROPONIN-I 0.059 ng/mL (0.000-0.060)
[2020-05-15] MEDS ORDERED: ENTRESTO 24 MG1 EACH PO (16:47)
[2020-05-15] MEDS ORDERED: ZETIA10 MG PO (16:48)
[2020-05-15] MEDS ORDERED: PROBENECID-COL1 EACH PO (16:48)
[2020-05-16 04:40] VITALS: BP 123/79
[2020-05-16 06:01] LABS: BASOPHILS 0.3 % (0-2); EOSINOPHILS 1.7 % (0-7); HEMOGLOBIN 13.5 g/dL (13.5-17.5); IMMATURE GRANULOCYTES 0.3 % (0-5); LYMPHOCYTES 15.8 % (15-50); MCH 30.3 pg (26.0-34.0); MCHC 32.9 g/dL (31.0-37.0); MCV 92.1 fL (80.0-100.0); MONOCYTES 6.9 % (2-11); PLATELET COUNT 202 10x3/uL (130-400); RBC 4.45 10x6/uL (4.20-6.10); RDW 13.9 % (11.5-14.5); WBC 6.6 10x3/uL (4.8-10.8)
[2020-05-16 06:41] LABS: CALC OSMOLALITY 286 mosm/kg (275-300); CALCIUM 8.8 mg/dL (8.5-10.1); CARBON DIOXIDE 29.7 mmol/L (21.0-32.0); CHLORIDE - SERUM 105 mmol/L (98-107); GLUCOSE 136 mg/dL (74-106); MAGNESIUM - SERUM 2.1 mg/dL (1.8-2.4); PHOSPHOROUS 3.2 mg/dL (2.5-4.9); SODIUM 142 mmol/L (136-145); UREA NITROGEN 17 mg/dL (7-18); eGFR NON AFRICAN AMERICAN 80 mL/min (90-120)
[2020-05-16 08:00] VITALS: BP 159/68
--- NOTE | 2020-05-16 08:42 | NUR ---
PERSONALLY SPOKE WITH WHO VERBALLY ORDERED 25MG ALDACTONE BID AND 1MG BUMEX DRIP IV FOR 12 HOURS. ORDER PLACED. WILL CTM.
[2020-05-16 10:30] VITALS: BP 145/79
[2020-05-16 11:46] VITALS: Ht 170.2 cm; Wt 104.3 kg
[2020-05-16 15:00] VITALS: BP 108/70
[2020-05-16 16:30] LABS: UDS - AMPHET NEGATIVE QUAL (NEGATIVE); UDS - BARB NEGATIVE QUAL (NEGATIVE); UDS - BENZO NEGATIVE QUAL (NEGATIVE); UDS - COCAINE NEGATIVE QUAL (NEGATIVE); UDS - OPIATE NEGATIVE QUAL (NEGATIVE); UDS - PCP NEGATIVE QUAL (NEGATIVE); UDS - THC NEGATIVE QUAL (NEGATIVE)
[2020-05-16 21:42] VITALS: BP 116/90
--- NOTE | 2020-05-16 22:30 | NUR ---
TOOTIE KENDALL COMPLETED AND DC'D.
[2020-05-17 01:49] VITALS: BP 133/82
[2020-05-17 05:39] VITALS: BP 127/87
[2020-05-17 07:10] LABS: BASOPHILS 0.3 % (0-2); HEMOGLOBIN 14.1 g/dL (13.5-17.5); IMMATURE GRANULOCYTES 0.4 % (0-5); LYMPHOCYTES 17.1 % (15-50); MCH 30.8 pg (26.0-34.0); MCHC 33.6 g/dL (31.0-37.0); MCV 91.7 fL (80.0-100.0); MEAN PLATELET VOLUME 12.3 fL (7.4-10.4); MONOCYTES 7.3 % (2-11); NEUTROPHILS 72.9 % (40-80); PLATELET COUNT 191 10x3/uL (130-400); RBC 4.58 10x6/uL (4.20-6.10); RDW 13.9 % (11.5-14.5); WBC 7.4 10x3/uL (4.8-10.8)
[2020-05-17 07:36] LABS: ANION GAP 13.1 mmol/L (8-16); CALCIUM 8.9 mg/dL (8.5-10.1); CREATININE - SERUM 1.1 mg/dL (0.6-1.3); MAGNESIUM - SERUM 1.8 mg/dL (1.8-2.4); PHOSPHOROUS 3.5 mg/dL (2.5-4.9); POTASSIUM - SERUM 3.1 mmol/L (3.5-5.1)
[2020-05-17 08:18] VITALS: BP 133/86
[2020-05-17] MEDS ORDERED: ALDACTONE25 MG PO (13:48)
--- NOTE | 2020-05-17 16:20 | NUR ---
CALLED DR SAMANO RE MEDICATIONS. HE ADVISED TO CONTINUE ALDACTONE BID, COREG 3.125MG BID, RESUME ENTRESTO.
[2020-05-17] MEDS ORDERED: COREG 3.1253.125 MG PO (16:24)
--- NOTE | 2020-05-17 17:10 | MORECARE ---
CASE MANAGEMENT DISCHARGE SUMMARY PATIENT: ADIEL SIEGEL UNIT: [id number] ADM DATE: 05/15/20 AGE: 65 : 57 SEX: M ROOM/BED: D.2116 AUTHOR: TONIO SANTOS PHYSICIAN: REFERRING PHYSICIAN: KATIE SIDDIQUI MD DATE OF SERVICE: 05/17/20 Discharge Plan Patient Name: ADIEL SIEGEL [facility] [facility] 1955 Planned Disposition: Home Anticipated Discharge Date: 05/17/20 Discharge Date: Expected LOS: 2 Initial Reviewer: [email or web address] Initial Review Date: 05/17/2020 Generated: 05/17/20 6:09 pm Patient Name: ADIEL SIEGEL Page [phone] at 1710 All edits/amendments must be made on the electronic document DICTATION DATE: 05/17/201708 PRE OWNED SALES MANAGER: EDDIE 05/17/201708 RPT#: [id number] DC DATE: STATUS: ADM IN [facility] [address] [place] [address] END OF REPORT
--- NOTE | 2020-05-17 17:16 | MORECARE ---
CASE MANAGEMENT DISCHARGE SUMMARY PATIENT: ADIEL CARVAJAL UNIT: [id number] ADM DATE: 05/15/20 AGE: 65 : 57 SEX: M ROOM/BED: D.7111 AUTHOR: TOM,DOC PHYSICIAN: REFERRING PHYSICIAN: KATIE SIDDIQUI MD DATE OF SERVICE: 05/17/20 Discharge Plan Patient Name: ADIEL CARVAJAL Facility: [facility]:[place] : 1955 Planned Disposition: Home Anticipated Discharge Date: 05/17/20 Discharge Date: Expected LOS: 2 Initial Reviewer: [email or web address] Initial Review Date: 05/17/2020 Generated: 05/17/20 6:16 pm Comments DCP- Discharge Planning Updated by [email or web address]: Joe Pelaez on 05/17/20 4:[address] Patient Name: ADIEL CARVAJAL Admission Status: ER Accout number: [id number] Admission Date: 05-15-2020 : 1955 Admission Diagnosis:CHEST PAIN, UNSPECIFIED Attending: KATIE SIDDIQUI Current LOS: 2 Anticipated DC Date: 05-17-2020 Planned Disposition: Home Primary Insurance: MEDICAID [place] Discharge Planning Comments: CM met with patient to complete DC plan and needs. CM educated patient on the CM role and verbal consent was given by patient to complete assessment. CM verified patient's address, phone number, and emergency contact phone numbers. Patient lives at with home with family. At discharge patient plans to return home and feels this is a safe discharge. The patient has 9 steps to navigate to enter the home and it is safe. Patient fills his medications at [facility] on . CM discussed availability of home health, rehab services, and medical equipment. Patient declined HHS, SNF, IPR, and DME. The patient neither mentioned nor discussed any other discharge needs and he is satisfied with DC plan. Transportation provider at discharge will be his daughter, November ([phone]). CM will continue to follow and will assist as needed with dc plans/needs. Production Material Handler: Joe Pelaez DCPIA - Discharge Planning Initial Assessment Updated by [email or web address]: Joe Pelaez on 05/17/20 5:11 pm * Is the patient Alert and Oriented? Yes * How many steps to enter\exit or inside your home? 9/0 * PCP NONE * Pharmacy 7 [facility] * Preadmission Environment Home with Family * ADLs Independent * Equipment Walker * Other Equipment NONE * List name and contact numbers for known caregivers / representatives who currently or will assist patient after discharge: Ester Carvajal (Daughter) [phone] * Verbal permission to speak to the caregivers and representatives has been obtained from the patient. Yes * Community resources currently utilized None * Please name any agencies selected above. n/a * Additional services required to return to the preadmission environment? No * Can the patient safely return to the preadmission environment? Yes * Has this patient been hospitalized within the prior 30 days at any hospital? No Last DP export: 05/17/20 4:10 p Patient Name: ADIEL CARVAJAL Page 11910 at 1716 All edits/amendments must be made on the electronic document DICTATION DATE: 05/17/201715 SECURITY PROFESSIONAL: EDDIE 05/17/201715 RPT#: [id number] DC DATE: STATUS: ADM IN [facility] [address] [place] [address] END OF REPORT
--- NOTE | 2020-05-17 17:25 | NUR ---
PT DISCHARGED HOME VIA WHEELCHAIR WITH FAMILY. PIV REMOVED WITH CATHETER TIP FULLY INTACT. PT SIGNED PROPER DISCHARGE INSTRUCTIONS AND REMOVED ALL VALUABLES FROM THE ROOM. TELEMETRY REMOVED AND RETURNED.
--- NOTE | 2020-05-18 09:28 | MORECARE ---
CASE MANAGEMENT DISCHARGE SUMMARY PATIENT: ADIEL CARVAJAL UNIT: [id number] ADM DATE: 05/15/20 AGE: 65 : 57 SEX: M ROOM/BED: D.8123 AUTHOR: TONIO SANTOS PHYSICIAN: REFERRING PHYSICIAN: KATIE SIDDIQUI MD DATE OF SERVICE: 05/18/20 Discharge Plan Patient Name: ADIEL CARVAJAL Facility: [facility]:[place] : 1955 Planned Disposition: Home Anticipated Discharge Date: 05/17/20 Discharge Date: 05/17/2020 Expected LOS: 2 Initial Reviewer: [email or web address] Initial Review Date: 05/17/2020 Generated: 05/18/20 10:27 am Comments DCP- Discharge Planning Updated by [email or web address]: Joe Pelaez on 05/17/20 4:[address] Patient Name: ADIEL CARVAJAL Admission Status: ER Accout number: [id number] Admission Date: 05-15-2020 : 1955 Admission Diagnosis:CHEST PAIN, UNSPECIFIED Attending: KATIE SIDDIQUI Current LOS: 2 Anticipated DC Date: 05-17-2020 Planned Disposition: Home Primary Insurance: MEDICAID [place] Discharge Planning Comments: CM met with patient to complete DC plan and needs. CM educated patient on the CM role and verbal consent was given by patient to complete assessment. CM verified patient's address, phone number, and emergency contact phone numbers. Patient lives at with home with family. At discharge patient plans to return home and feels this is a safe discharge. The patient has 9 steps to navigate to enter the home and it is safe. Patient fills his medications at [facility] on [address]. CM discussed availability of home health, rehab services, and medical equipment. Patient declined HHS, SNF, IPR, and DME. The patient neither mentioned nor discussed any other discharge needs and he is satisfied with DC plan. Transportation provider at discharge will be his daughter, November ([phone]). CM will continue to follow and will assist as needed with dc plans/needs. Screw Machine Setter: Joe Pelaez DCPIA - Discharge Planning Initial Assessment Updated by [email or web address]: Joe Pelaez on 05/17/20 5:11 pm * Is the patient Alert and Oriented? Yes * How many steps to enter\exit or inside your home? 9/0 * PCP NONE * Pharmacy 7 [facility] * Preadmission Environment Home with Family * ADLs Independent * Equipment Walker * Other Equipment NONE * List name and contact numbers for known caregivers / representatives who currently or will assist patient after discharge: Ester Carvajal (Daughter) [phone] * Verbal permission to speak to the caregivers and representatives has been obtained from the patient. Yes * Community resources currently utilized None * Please name any agencies selected above. n/a * Additional services required to return to the preadmission environment? No * Can the patient safely return to the preadmission environment? Yes * Has this patient been hospitalized within the prior 30 days at any hospital? No Last DP export: 05/17/20 4:16 p Patient Name: ADIEL CARVAJAL Page 20149 at 0928 All edits/amendments must be made on the electronic document DICTATION DATE: 05/18/20927 AGRONOMY ADVISOR: EDDIE 05/18/20927 RPT#: [id number] DC DATE:05/17/20 STATUS: DIS IN [facility] [address] [place] [address] END OF REPORT
--- NOTE | 2020-05-19 08:59 | CN ---
PATIENT NAME:ADIEL SIEGEL MEDICAL RECORD: [id number] : 57 LOCATION:D. D.2116 ADMIT DATE: 05/15/20 ACCOUNT: [id number] CONSULTING PHYSICIAN: CHERI SAMANO MD REFERRING PHYSICIAN: KATIE SIDDIQUI MD DATE OF CONSULTATION: 05/16/2020 HISTORY OF PRESENT ILLNESS: A 65-year-old gentleman with extensive cardiac history, has history of coronary artery disease, status post coronary bypass grafting, resultant ischemic cardiomyopathy, EF 20% to 25%, scheduled for a Bi-V ICD in the near future, admitted with volume overload, symptomatology ongoing over the past 3-4 days. We are asked to see him concerning his cardiovascular status. PAST MEDICAL HISTORY: Includes; 1. History of hypertension. 2. Coronary artery disease, status post coronary bypass grafting. 3. Dyslipidemia. 4. Cardiomyopathy as described above. 5. Intermittent atrial fibrillation. 6. Diabetes mellitus. ALLERGIES: STATINS. MEDICATIONS: Include insulin Lantus 10 at bedtime, Bumex 2 mg p.o. b.i.d., Entresto 25/26 b.i.d., Zetia 10 mg p.o. daily, Eliquis 5 b.i.d. SOCIAL HISTORY: Nonsmoker, nondrinker. Tries to walk on a semi-regular basis. Easily takes care of all his ADLs. REVIEW OF SYSTEMS: The patient reports easy bruising but reports no swollen glands. The patient reports no fever, no night sweats, no significant weight gain, no significant weight loss. No significant exercise tolerance. The patient reports no dry eyes, no irritation, no vision change. Patient reports no difficulty hearing and no ear pain. Patient reports no frequent nose bleeds or nose and sinus problems. Patient reports on arm pain on exertion. No shortness of breath while lying down. No history of heart murmur. Patient reports no cough, no wheezing or coughing up blood. Patient reports no abdominal pain, no vomiting. Normal appetite. No diarrhea and not vomiting blood. No nausea and no constipation. Patient reports no incontinence. No difficulty urinating. No hematuria. No increased frequency. Patient reports no muscle aches. No weakness, no arthralgias, no back pain. No swelling of the extremities. Patient reports no abnormal mole, no jaundice, no rashes. Reports no loss of consciousness. No weakness and no numbness. No seizures, dizziness, or headaches. The patient reports no depression, no sleep disturbance, feeling safe in a relationship and no alcohol abuse. Patient reports on fatigue. Reports no runny nose or sinus pressure. No itching, no hives, and no frequent sneezing. PHYSICAL EXAMINATION: GENERAL: Pleasant gentleman in no acute distress, appears somewhat older than stated age. VITAL SIGNS: Blood pressure 123/79, pulse 81 and regular. HEENT: Normocephalic, atraumatic. NECK: No bruits noted. CONSULT REPORT [id number] ADIEL SIEGEL HEART: Regular. S3 gallop is noted, II/ systolic ejection murmur. LUNGS: Fair air excursion. ABDOMEN: Soft, nontender. EXTREMITIES: Pulses easily palpable, 2+. There is no edema. IMPRESSION AND PLAN: Volume overload, [id number]-[id number] systolic dysfunction. We will use IV loop diuretics, add Aldactone to his medical regime; hopefully, fairly quickly so we can proceeded with a Bi-V ICD single resynchronization therapy in the near future. TRANSINT:[id number] Voice Confirmation ID: [id number] DOCUMENT ID: [id number] CHERI SAMANO MD at 0859 CC: [id number] DICTATION DATE: 05/16/20932 STRUCTURAL STEEL SHOP SUPERVISOR: 05/16/20 1255 DIS IN 05/17/20 [facility] [address] [place] [address]
--- NOTE | 2020-05-19 08:59 | EC ---
PATIENT:ADIEL SIEGEL DATE OF SERVICE: 05/15/20 SEX: M MEDICAL RECORD: [id number] DATE OF : [birth year] LOCATION:D.M2 D.211 AGE OF PATIENT: 65 ADMISSION DATE: 05/15/20 REFERRING PHYSICIAN: INTERPRETING PHYSICIAN: CHERI SAMANO MD ECHOCARDIOGRAM REPORT ECHO CHARGES 4 ECHO COMPLETE Date: 05/15/20 CLINICAL DIAGNOSIS: CARDIOMYOPATHY ECHOCARDIOGRAPHIC MEASUREMENTS (adult normal given) AC root (d.<3.7cm) 3.0 cm LV Septum d (<1.2 cm> 1.2 cm Valve Excursion 1.9 cm LV Septum (systole) 1.3 cm Left Atria (s.<4.0cm> 4.8 cm LVPW d(<1.2cm) 1.9 cm RV (d.<2.3cm) 3.9 cm LVPW (sytole) 2.0 cm LV diastole(<5.6CM) 8.0 cm MV E-F(>70mm/sec) cm LV systole 7.4 cm LVOT Diameter 1.8 cm MV exc.(>10mm) 1.1 cm Est.ejection fraction (50-75%) % DOPPLER: LVIT cm/sec A 31 cm/sec E 91 cm/sec LA cm/sec RVSP 34 mmHg LVOT 98 cm/sec AOP1/2T m/s Asc. Ao 143 cm/sec RVOT 49 cm/sec RA cm/sec PA 82 cm/sec AV Gradient Peak 8.2 mmHg AV Mean 4.4 mmHg AV Area 1.7 cm MV Gradient Peak 4.8 mmHg MV Mean 2.1 mmHg MV Area cm COMMENTS: Operational Assistant: Maria Luisa CHAND Wood Last Maker: 3 Dr. Hsu TAPE# PACS Pericardial Effusion N DATE OF SERVICE: Adequate 2D, color-flow imaging, spectral Doppler, and M-Mode Borderline LVH. LV internal dimensions are dilated. LV is globally hypokinetic with reduced EF, estimated at 20% to 25%. Aortic valve sclerosis without stenosis by Doppler interrogation. Left atrium likewise is dilated at 4.8 cm. Mitral valve shows no prolapse. Bqxn-tc-vzocwipm MR. Right-sided chambers are grossly normal. Moderate TR. ECHOCARDIOGRAM REPORT [id number] ADIEL SIEGEL TRANSINT:[id number] Voice Confirmation ID: [id number] DOCUMENT ID: [id number] CHERI SAMANO MD at 0859 CC: [id number] DICTATION DATE: 05/16/20913 LOAD OUT PERSON: 05/16/20 1130 DIS IN 05/17/20 [facility] [address] [place] [id number]
== END 2020-05-17 17:26 | disposition home or self-care (01) | DRG 293 ==
LOC: D.ER 19:43 → OBSVTIME 22:16 → D.EDHOLD 22:16 → D.M2 22:16 → D.EDHOLD 22:16 → D.M2 05-15 15:13
PROVIDERS: Family Medicine; ADMIT Family Medicine; ATTEND Family Medicine
DX: I11.0 Hypertensive heart disease with heart failure (principal); I50.23 Acute on chronic systolic (congestive) heart failure; I42.9 Cardiomyopathy, unspecified; E11.65 Type 2 diabetes mellitus with hyperglycemia; E87.6 Hypokalemia; E78.5 Hyperlipidemia, unspecified; K21.9 Gastro-esophageal reflux disease without esophagitis; N40.0 Benign prostatic hyperplasia without lower urinary tract symptoms; I48.91 Unspecified atrial fibrillation; I25.119 Atherosclerotic heart disease of native coronary artery with unspecified angina pectoris; I08.1 Rheumatic disorders of both mitral and tricuspid valves